=== PATIENT | female | born 1940 | race Caucasian/White ===

== ENCOUNTER 2017-11-18 17:15 | Emergency (ER) | payer MEDICARE, BC, SELFPAY ==
[2017-11-18 17:19] VITALS: BP 174/84; PULSE 98; RESP 18; TEMP 36.8; O2SAT 95; BMI 29.1
--- NOTE | 2017-11-18 17:33 | PC.NURSE ---
acute onset rt sdie cheek/upper lip swelling x90 min reports improving a little better x15 minutes, no swelling of tongue/throat/palate denies soa speaking in full sentences
[2017-11-18] MEDS: diphenhydrAMINE 50 MG/ML VIAL IV (18:12)
[2017-11-18] MEDS: methylPREDNISolone 125 MG/2 ML VIAL IV (18:12)
--- NOTE | 2017-11-18 18:38 | ED.DENTAL ---
HPI - Dental/Oral <SUDEEP Hogan - Last Filed: 11/18/17 20:56> General Chief complaint: Dental/Oral Stated complaint: RT SIDED FACIAL SWELLING Time Seen by Provider: 11/18/17 18:05 Source: patient and family Mode of arrival: ambulatory Limitations: no limitations History of Present Illness HPI Narrative: Patient presents with chief complaint of sudden onset right-sided facial swelling today. She states it started approximately 4 o'clock, but got worse about 5 o'clock. She denies any shortness of breath, cough, congestion, wheezing, oral swelling. She denies any swelling of her tongue or hives. She states that the swelling is on her right upper lip, but that is improved since she red emergency department. She also complains of some right-sided cheek swelling. She denies any fevers. She denies any recent dental work, she denies any tooth pain. Patient denies any new medications or food exposures today other than a new so also that she has never tried before prior to her lip swelling. Related Data Previous Rx's Medication Instructions Recorded prednisone 40 mg PO DAILY #10 tab 11/18/17 Allergies Allergy/AdvReac Type Severity Reaction Status Date / Time No Known Drug Allergies Allergy Verified 11/18/17 17:19 Review of Systems <SUDEEP Hogan - Last Filed: 11/18/17 20:56> Review of Systems GENERAL: Denies chills, fatigue, malaise, fever, sweats. HEENT: See HPI RESPIRATORY: Denies dyspnea, cough, wheezing, hemoptysis, sputum. CARDIOVASCULAR: Denies chest pain, palpitations, orthopnea, edema, GASTROINTESTINAL: Denies nausea, vomiting, abdominal pain, diarrhea, constipation, melena. : Denies dysuria, frequency, incontinence, hematuria, urinary retention. MUSCULOSKELETAL: denies weakness, joint pain, or bony pain SKIN: Denies rash, skin lesions, or other NEUROLOGIC: Denies weakness, headache, numbness, change in speech, confusion, seizures, incoordination. PSYCHIATRIC: No concerning psychosocial issues. 12 point review of systems is negative except for those stated above Exam <SUDEEP Hogan - Last Filed: 11/18/17 20:56> Narrative Exam Narrative: GENERAL: This is a well-nourished, well-developed patient, in mild distress. HEAD: Atraumatic. Normocephalic. No temporal or scalp tenderness. EYES: Pupils equal round and reactive. Extraocular motions intact. No scleral icterus. No injection or drainage. ENT: Nose without bleeding, purulent drainage or septal hematoma. Throat without erythema, tonsillar hypertrophy or exudate. Uvula midline. Airway patent. No pain to gum palpation. NECK: Trachea midline. No JVD or lymphadenopathy. Supple, nontender, no meningeal signs. CARDIOVASCULAR: Regular rate and rhythm without murmurs, gallops, or rubs. RESPIRATORY: Clear to auscultation. Breath sounds equal bilaterally. No wheezes, rales, or rhonchi. GASTROINTESTINAL: Abdomen soft, non-tender, nondistended. No hepato-splenomegaly, or palpable masses. No guarding. EXTREMITIES: No clubbing, cyanosis, or edema. No joint tenderness, effusion, or edema noted. BACK: Nontender without deformity or crepitance. No flank tenderness. NEURO: AOx3. No erythema, ecchymosis or hives noted. SKIN: No rash or erythema. Initial Vital Signs Initial Vital Signs: Vital Signs Temperature 98.3 F 11/18/17 17:19 Pulse Rate 98 H 11/18/17 17:19 Respiratory Rate 18 11/18/17 17:19 Blood Pressure 174/84 H 11/18/17 17:19 Pulse Oximetry 95 11/18/17 17:19 <Abby Wilson DO - Last Filed: 11/19/17 04:56> Initial Vital Signs Initial Vital Signs: Vital Signs Temperature 98.3 F 11/18/17 17:19 Pulse Rate 98 H 11/18/17 17:19 Respiratory Rate 18 11/18/17 17:19 Blood Pressure 174/84 H 11/18/17 17:19 Pulse Oximetry 95 11/18/17 17:19 Course <BELA Hogan - Last Filed: 11/18/17 20:56> Orders Ordered: Discontinued Medications Diphenhydramine HCl (Benadryl) 50 mg IV NOW ONE Stop: 11/18/17 17:42 Last Admin: 11/18/17 18:12 Dose: 50 mg Methylprednisolone (Solu-Medrol 125 Mg Vial) 125 mg IV NOW ONE Stop: 11/18/17 17:42 Last Admin: 11/18/17 18:12 Dose: 125 mg Reevaluation(s) Reevaluation #1: Patient states that she feels as though her face is less swollen than previously. She is in no respiratory distress, sitting in bed reading her book. Time: 19:05 Reevaluation #2: Patient states she feels much improved. Exam reveals decreased facial swelling. Patient and state comfort with readiness to go home. They state they will come back if any shortness of breath, wheezing, respiratory distress. Time: 20:00 Vital Signs - 8 hr 11/18/17 17:19 11/18/17 20:14 Temperature 98.3 F Pulse Rate 98 H 82 Respiratory Rate 18 16 Blood Pressure 174/84 H Blood Pressure [Right Arm] 148/84 H Pulse Oximetry 95 94 <Abby Wilson DO - Last Filed: 11/19/17 04:56> Orders Ordered: Discontinued Medications Diphenhydramine HCl (Benadryl) 50 mg IV NOW ONE Stop: 11/18/17 17:42 Last Admin: 11/18/17 18:12 Dose: 50 mg Methylprednisolone (Solu-Medrol 125 Mg Vial) 125 mg IV NOW ONE Stop: 11/18/17 17:42 Last Admin: 11/18/17 18:12 Dose: 125 mg Vital Signs - 8 hr 11/18/17 17:19 11/18/17 20:14 Temperature 98.3 F Pulse Rate 98 H 82 Respiratory Rate 18 16 Blood Pressure 174/84 H Blood Pressure [Right Arm] 148/84 H Pulse Oximetry 95 94 [facility] - Dental/Oral <BELA Hogan - Last Filed: 11/18/17 20:56> [facility] Narrative Medical decision making narrative: Patient presents with chief complaint of sudden-onset right-sided facial swelling. She has not taken Margarito inhibitor. We discussed the possibility of hereditary angioedema, though she does not know of anything in her family. We discussed the possibility of an allergic reaction, and the patient tried a new salsa today prior to the swelling occurring. She was treated in the emergency department with Solu-Medrol and Benadryl. She was noted to have a significant decrease of swelling. She has not it would never have any or pharyngeal involvement or respiratory compromise. Her vital signs were stable throughout her stay the patient remained hemodynamically stable. After 2.5 hr in the emergency department, the patient her stated they are ready to go home. I discussed at length return precautions of shortness of breath, or pharyngeal swelling, signs of an allergic reaction. They state understanding and have no questions or concerns upon discharge. The plan following up with the primary care provider tomorrow. I did place the patient on a steroid burst to help control inflammation over the next few days. Discharge Plan Departure Patient Disposition: Home Clinical Impression: Allergic reaction Discharge Date/Time: 11/18/17 20:45 Interventions: ED Discharge Assessment Last Done: 11/18/17 20:45 Instructions: Anaphylaxis, DI for General Allergic Reactions Activity Restrictions/Additional Instructions: Please monitor for shortness of breath, trouble breathing, or swelling in the mouth. Am starting you on steroids to help decrease inflammation over the next few days. Please start that tomorrow. Please continue to take Benadryl as needed for the swelling. You can take your next dose at midnight. Please come back to the emergency department if he has any acute concerns. Please follow-up with your primary care provider. Please monitor for recurrence. Prescriptions: New prednisone 20 mg tablet 40 mg PO DAILY Qty: 10 RF: 0 Referrals: Inder Tamayo MD [Primary Care Provider] - <Abby Wilson DO - Last Filed: 11/19/17 04:56> Cosign ED Attending Kevinature Attestation: I was immediately available in the department for consultation. Documentation has been reviewed. I agree with assessment and plan.
--- NOTE | 2017-11-18 18:41 | ED_ITS ---
HPI - Dental/Oral <SUDEEP Hogan - Last Filed: 11/18/17 20:56> General Chief complaint: Dental/Oral Stated complaint: RT SIDED FACIAL SWELLING Time Seen by Provider: 11/18/17 18:05 Source: patient and family Mode of arrival: ambulatory Limitations: no limitations History of Present Illness HPI Narrative: Patient presents with chief complaint of sudden onset right- sided facial swelling today. She states it started approximately 4 o'clock, but got worse about 5 o'clock. She denies any shortness of breath, cough, congestion, wheezing, oral swelling. She denies any swelling of her tongue or hives. She states that the swelling is on her right upper lip, but that is improved since she red emergency department. She also complains of some right- sided cheek swelling. She denies any fevers. She denies any recent dental work , she denies any tooth pain. Patient denies any new medications or food exposures today other than a new so also that she has never tried before prior to her lip swelling. Related Data Previous Rx's Medication Instructions Recorded prednisone 40 mg PO DAILY #10 tab 11/18/17 Allergies Allergy/AdvReac Type Severity Reaction Status Date / Time No Known Drug Allergies Allergy Verified 11/18/17 17:19 Review of Systems <SUDEEP Hogan - Last Filed: 11/18/17 20:56> Review of Systems GENERAL: Denies chills, fatigue, malaise, fever, sweats. HEENT: See HPI RESPIRATORY: Denies dyspnea, cough, wheezing, hemoptysis, sputum. CARDIOVASCULAR: Denies chest pain, palpitations, orthopnea, edema, GASTROINTESTINAL: Denies nausea, vomiting, abdominal pain, diarrhea, constipation, melena. : Denies dysuria, frequency, incontinence, hematuria, urinary retention. MUSCULOSKELETAL: denies weakness, joint pain, or bony pain SKIN: Denies rash, skin lesions, or other NEUROLOGIC: Denies weakness, headache, numbness, change in speech, confusion, seizures, incoordination. PSYCHIATRIC: No concerning psychosocial issues. 12 point review of systems is negative except for those stated above Exam <SUDEEP Hogan - Last Filed: 11/18/17 20:56> Narrative Exam Narrative: GENERAL: This is a well-nourished, well-developed patient, in mild distress. HEAD: Atraumatic. Normocephalic. No temporal or scalp tenderness. EYES: Pupils equal round and reactive. Extraocular motions intact. No scleral icterus. No injection or drainage. ENT: Nose without bleeding, purulent drainage or septal hematoma. Throat without erythema, tonsillar hypertrophy or exudate. Uvula midline. Airway patent. No pain to gum palpation. NECK: Trachea midline. No JVD or lymphadenopathy. Supple, nontender, no meningeal signs. CARDIOVASCULAR: Regular rate and rhythm without murmurs, gallops, or rubs. RESPIRATORY: Clear to auscultation. Breath sounds equal bilaterally. No wheezes , rales, or rhonchi. GASTROINTESTINAL: Abdomen soft, non-tender, nondistended. No hepato-splenomegaly , or palpable masses. No guarding. EXTREMITIES: No clubbing, cyanosis, or edema. No joint tenderness, effusion, or edema noted. BACK: Nontender without deformity or crepitance. No flank tenderness. NEURO: AOx3. No erythema, ecchymosis or hives noted. SKIN: No rash or erythema. Initial Vital Signs Initial Vital Signs: Vital Signs Temperature 98.3 F 11/18/17 17:19 Pulse Rate 98 H 11/18/17 17:19 Respiratory Rate 18 11/18/17 17:19 Blood Pressure 174/84 H 11/18/17 17:19 Pulse Oximetry 95 11/18/17 17:19 <Abby Wilson DO - Last Filed: 11/19/17 04:56> Initial Vital Signs Initial Vital Signs: Vital Signs Temperature 98.3 F 11/18/17 17:19 Pulse Rate 98 H 11/18/17 17:19 Respiratory Rate 18 11/18/17 17:19 Blood Pressure 174/84 H 11/18/17 17:19 Pulse Oximetry 95 11/18/17 17:19 Course <BELA Hogan - Last Filed: 11/18/17 20:56> Orders Ordered: Discontinued Medications Diphenhydramine HCl (Benadryl) 50 mg IV NOW ONE Stop: 11/18/17 17:42 Last Admin: 11/18/17 18:12 Dose: 50 mg Methylprednisolone (Solu-Medrol 125 Mg Vial) 125 mg IV NOW ONE Stop: 11/18/17 17:42 Last Admin: 11/18/17 18:12 Dose: 125 mg Reevaluation(s) Reevaluation #1: Patient states that she feels as though her face is less swollen than previously. She is in no respiratory distress, sitting in bed reading her book. Time: 19:05 Reevaluation #2: Patient states she feels much improved. Exam reveals decreased facial swelling. Patient and state comfort with readiness to go home. They state they will come back if any shortness of breath, wheezing, respiratory distress. Time: 20:00 Vital Signs - 8 hr 11/18/17 17:19 11/18/17 20:14 Temperature 98.3 F Pulse Rate 98 H 82 Respiratory Rate 18 16 Blood Pressure 174/84 H Blood Pressure [Right Arm] 148/84 H Pulse Oximetry 95 94 <Abby Wilson DO - Last Filed: 11/19/17 04:56> Orders Ordered: Discontinued Medications Diphenhydramine HCl (Benadryl) 50 mg IV NOW ONE Stop: 11/18/17 17:42 Last Admin: 11/18/17 18:12 Dose: 50 mg Methylprednisolone (Solu-Medrol 125 Mg Vial) 125 mg IV NOW ONE Stop: 11/18/17 17:42 Last Admin: 11/18/17 18:12 Dose: 125 mg Vital Signs - 8 hr 11/18/17 17:19 11/18/17 20:14 Temperature 98.3 F Pulse Rate 98 H 82 Respiratory Rate 18 16 Blood Pressure 174/84 H Blood Pressure [Right Arm] 148/84 H Pulse Oximetry 95 94 [facility] - Dental/Oral <BELA Hogan - Last Filed: 11/18/17 20:56> [facility] Narrative Medical decision making narrative: Patient presents with chief complaint of sudden-onset right-sided facial swelling. She has not taken Margarito inhibitor. We discussed the possibility of hereditary angioedema, though she does not know of anything in her family. We discussed the possibility of an allergic reaction, and the patient tried a new salsa today prior to the swelling occurring. She was treated in the emergency department with Solu-Medrol and Benadryl. She was noted to have a significant decrease of swelling. She has not it would never have any or pharyngeal involvement or respiratory compromise. Her vital signs were stable throughout her stay the patient remained hemodynamically stable. After 2.5 hr in the emergency department, the patient her stated they are ready to go home. I discussed at length return precautions of shortness of breath, or pharyngeal swelling, signs of an allergic reaction. They state understanding and have no questions or concerns upon discharge. The plan following up with the primary care provider tomorrow. I did place the patient on a steroid burst to help control inflammation over the next few days. Discharge Plan Departure Patient Disposition: Home Clinical Impression: Allergic reaction Discharge Date/Time: 11/18/17 20:45 Interventions: ED Discharge Assessment Last Done: 11/18/17 20:45 Instructions: Anaphylaxis, DI for General Allergic Reactions Activity Restrictions/Additional Instructions: Please monitor for shortness of breath, trouble breathing, or swelling in the mouth. Am starting you on steroids to help decrease inflammation over the next few days. Please start that tomorrow. Please continue to take Benadryl as needed for the swelling. You can take your next dose at midnight. Please come back to the emergency department if he has any acute concerns. Please follow- up with your primary care provider. Please monitor for recurrence. Prescriptions: New prednisone 20 mg tablet 40 mg PO DAILY Qty: 10 RF: 0 Referrals: Inder Tamayo MD [Primary Care Provider] - <Abby Wilson DO - Last Filed: 11/19/17 04:56> Cosign ED Attending Kevinature Attestation: I was immediately available in the department for consultation. Documentation has been reviewed. I agree with assessment and plan.
[2017-11-18 20:14] VITALS: BP 148/84; PULSE 82; RESP 16; O2SAT 94
== END 2017-11-18 20:45 | disposition home or self-care (01) ==
PROVIDERS: Emergency Provider Nurse Practitioner Family; Family Provider Internal Medicine; PCP Internal Medicine
DX: T78.40XA Allergy, unspecified, initial encounter (principal)
CPT/HCPCS: 96374; 96375; 99282; 99284; J1200; J2930

== ENCOUNTER → 2018-03-26 11:05 | Outpatient (CLI) | payer MEDICARE, BC, SELFPAY ==
--- NOTE | 2018-03-26 | DI.MG.S_ITS ---
BILATERAL DIGITAL SCREENING MAMMOGRAM 3D/2D WITH CAD: 03/26/2018 CLINICAL: Routine screening. Comparison is made to exams dated: 03/19/2017 mammogram, 02/15/2016 mammogram, and 12/28/2014 mammogram - [facility]. There are scattered fibroglandular elements in both breasts. Current study was also evaluated with a Computer Aided Detection (CAD) system. No significant masses, calcifications, or other findings are seen in either breast. There has been no significant interval change. IMPRESSION: NEGATIVE There is no mammographic evidence of malignancy. A 1 year screening mammogram is recommended. This exam was interpreted at Station ID: [id number]. NOTE: For mammograms, a report in lay terms will be sent to the patient. Approximately 15% of breast malignancies will not be visualized mammographically. In the management of a palpable breast mass, a negative mammogram must not discourage biopsy of a clinically suspicious lesion. Electronically Signed By: Kun lopez/keesha:03/26/2018 16:48:41 letter sent: Normal Exam ACR BI-RADS Category 1: Negative [id number]
== END ==
PROVIDERS: Family Provider Internal Medicine; PCP Internal Medicine; Visit Provider Internal Medicine
DX: Z12.31 Encounter for screening mammogram for malignant neoplasm of breast (principal)
CPT/HCPCS: 77063; 77067

== ENCOUNTER 2018-04-30 20:40 | Emergency (ER) | payer MEDICARE, BC, SELFPAY ==
[2018-04-30 20:35] VITALS: BMI 28.6
--- NOTE | 2018-04-30 20:56 | ED_ITS ---
HPI - Allergic Reaction General Chief complaint: Allergic Reaction Stated complaint: Anaphylactic Reaction Time Seen by Provider: 04/30/18 20:51 Source: patient Mode of arrival: EMS Limitations: no limitations History of Present Illness HPI narrative: The patient developed swelling to the left tongue about 45 min pr ior to arrival by EMS. The edema is located to the left anterior thumb only. She has no difficulty breathing or swallowing. She has no difficulty speaking. This event is having previously with similar findings. She has also had redness and swelling to the face previously. She has not had any neck swelling. She has never required intubation or had diffuse rash with the swelling. 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 Her physician as previously changed her medications, but the bowels continue. Her last amount of swelling was 4 days ago. Her physicians change in medications, she is currently not on Margarito inhibitors. She has had no fever or chills. She had dinner about 2 hr prior to onset symptoms. She had seafood. She has no prior history of shellfish allergy. She has had 9 prior episodes, and no time does she remember shellfish being involved. Related Data Home Medications Medication Instructions Recorded Confirmed C,E,zinc,copper [id number] 1 cap PO DAILY 04/30/18 04/30/18 [Ocuvite Adult 50 Plus] amlodipine 04/30/18 04/30/18 aspirin 81 mg PO DAILY 04/30/18 04/30/18 atenolol 04/30/18 04/30/18 atorvastatin 04/30/18 04/30/18 furosemide 10 mg 04/30/18 Allergies Allergy/AdvReac Type Severity Reaction Status Date / Time No Known Drug Allergies Allergy Verified 11/18/17 17:19 Review of Systems Review of Systems ROS Unobtainable: All systems reviewed & are unremarkable except as noted in HPI and below Constitutional Denies body ache(s), Denies chills, Denies fatigue, Denies fever(s) and Denies frequent falls Eyes Denies eye discharge and Denies irritation ENT Ears, Nose, Mouth, and Throat: Reports change in voice, Denies dizziness, Denies neck pain and Reports tongue swelling Cardiovascular Denies chest pain, Denies irregular heart rhythm, Denies lightheadedness, Denies palpitations, Denies dyspnea, Denies dyspnea on exertion and Denies orthopnea Respiratory Denies cough, Denies dyspnea, Denies dyspnea on exertion and Denies wheezing Musculoskeletal Denies neck pain and Denies numbness Integumentary/Breasts Denies pruritus, Denies erythema, Denies rash and Denies wounds Neurologic Denies behavioral changes, Denies confusion, Denies dizziness, Denies frequent falls and Denies numbness Psychiatric Denies behavioral changes and Denies confusion Endocrine Denies fatigue and Denies palpitations Allergic/Immunologic Reports tongue swelling and Denies wheezing PFSH Medical History Angioedema (Acute) Hypertension (Acute) Surgical History S/P appy (Acute) Social History Smoking Status: Former smoker Social History Smoking Status: Former smoker Exam Initial Vital Signs Initial Vital Signs: Vital Signs Pulse Rate 89 04/30/18 21:42 Respiratory Rate 18 04/30/18 21:42 Blood Pressure 141/84 H 04/30/18 21:42 Pulse Oximetry 95 04/30/18 21:42 Const General: cooperative and well developed Nutritional Appearance: well nourished Orientation: alert, awake, oriented x3 and not confused HENGA Mouth: lip normal, moist mucous membranes, No drooling, muffled voice and tongue abnormal (Swelling to the left anterior tongue.) Throat: posterior oropharynx normal Eyes General: appearance normal, both eyes and all related structures Eyelids: eyelids normal Conjunctivae: conjunctivae normal Sclera: sclerae normal Pupils: PERRL EOM: EOM intact bilaterally Neck Neck: normal visual inspection, trachea midline, No anterior neck swelling, No lymphadenopathy, No midline deformity, No tender, No JVD and other Chest Chest: normal inspection of the chest Resp Effort & Inspection: normal respiratory effort, able to speak in complete sentences, no respiratory distress and no use of accessory muscles Auscultation: clear to auscultation bilaterally, no rales, no rhonchi and no wheezes Cardio Rate: regular rate Rhythm: regular rhythm Heart Sounds: no click, no gallops, no murmurs and no rubs Pulses: normal peripheral pulses GI Inspection: non-distended Palpation: soft, no hepatosplenomegaly, No guarding, No pulsatile mass and No tender Auscultation: normal bowel sounds Skin General: no rashes or lesions noted and No petechiae Neuro General: alert, oriented x3, gait normal and no focal motor deficits Speech: speech normal Extrem General: No edema Course Course Narrative: The patient presents 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 She has had recent medicine changes by her PCM. She is on a calcium channel amos as well as aspirin. These meds are still possibly problematic. She did take Benadryl prior to arrival. She was given Solu-Medrol here. Prior to discharge that tongue swelling had not resolved but it improved by 60%. Her voice is normal. She has no airway compromise. She feels comfortable going home. She is advised not to take aspirin or Amlodipine and to follow up with her doctor for further advice. Orders Ordered: ED Orders 04/30/18 21:46 Basic Metabolic Panel Stat Complete Blood Count AUTO DIFF Stat Discontinued Medications Methylprednisolone (Solu-Medrol 125 Mg Vial) 125 mg IV NOW ONE Stop: 04/30/18 20:52 Last Admin: 04/30/18 21:04 Dose: 125 mg Vital Signs - 8 hr 04/30/18 21:42 04/30/18 22:41 04/30/18 23:00 Pulse Rate 89 92 H 109 H Respiratory Rate 18 21 19 Blood Pressure [Right Arm] 141/84 H 138/63 133/63 Pulse Oximetry 95 94 94 MDM - Allergic Reaction Lab Data Result diagrams: 04/30/18 21:46 04/30/18 21:46 Lab Results 04/30/18 04/30/18 Range/Units 21:46 21:46 WBC 7.8 (4.5-11.0) X10^3/uL RBC 4.14 (4.0-5.2) X10^6/uL Hgb 12.7 (12.0-16.0) g/dL Hct 38.5 (36-46) % MCV 93.0 (80-100) fL MCH 30.7 (26-34) PG MCHC 33.0 (30-36) % RDW 13.8 (11.6-14.8) % Plt Count 209 (150-400) X10^3/uL Neut % (Auto) 56.2 (50-75) % Lymph % (Auto) 27.8 (25-40) % Clinch % (Auto) 13.2 (3-14) % Eos % (Auto) 2.2 (2-4) % Baso % (Auto) 0.6 (0-2) % Neut # (Auto) 4400 (6426-0125) /uL Lymph # (Auto) 2200 (4432-7560) /uL Clinch # (Auto) 1000 H (0-900) /uL Eos # (Auto) 200 (0-450) /uL Baso # (Auto) 0 (0-100) /uL Sodium 137 (137-145) mmol/L Potassium 3.9 (3.4-5.1) mmol/L Chloride 100 (98-107) mmol/L Carbon Dioxide 23 (22-32) mmol/L BUN 12 (7-17) mg/dL Creatinine 0.60 (0.52-1.04) mg/dL Estimated GFR > 60.0 (>60) mL/min BUN/Creatinine Ratio 20.0 (6-22) Glucose 103 (80-110) mg/dL Calcium 9.5 (8.4-10.2) mg/dL Discharge Plan Departure Patient Disposition: Home Clinical Impression: Angioedema Qualifiers: Encounter type: initial encounter Qualified Code(s): T78.3XXA - Angioneurotic edema, initial encounter Instructions: Angioedema Activity Restrictions/Additional Instructions: To not take aspirin. Do not take Amlodipine. Follow-up with your doctor tomorrow for further direction about blood pressure management and medication management in general. Return to the ER if you develop worsening of the swelling in your mouth, on your tongue. Prescriptions: No Action atorvastatin 20 mg tablet RF: 0 amlodipine 10 mg tablet RF: 0 aspirin 81 mg Tablet,Chewable 81 mg PO DAILY RF: 0 furosemide 20 mg tablet 10 mg RF: 0 atenolol 50 mg tablet RF: 0 Ocuvite Adult 50 Plus 250-5-1 mg Capsule 1 cap PO DAILY RF: 0 Referrals: Inder Tamayo MD [Primary Care Provider] -
[2018-04-30] MEDS: methylPREDNISolone 125 MG/2 ML VIAL IV (21:04)
[2018-04-30 21:42] VITALS: BP 141/84; PULSE 89; RESP 18; O2SAT 95
[2018-04-30 21:50] LABS: Add Manual Diff / Slide Review NO; Basophils Absolute Auto 0 /uL (0-100); Basophils Percent Auto 0.6 % (0-2); Eosinophils Absolute Auto 200 /uL (0-450); Eosinophils Percent Auto 2.2 % (2-4); Hematocrit 38.5 % (36-46); Hemoglobin 12.7 g/dL (12.0-16.0); Lymphocytes Absolute Auto 2200 /uL (1100-4500); Lymphocytes Percent Auto 27.8 % (25-40); Mean Corpuscular Hemoglobin 30.7 PG (26-34); Monocytes Absolute Auto 1000 /uL (0-900); Monocytes Percent Auto 13.2 % (3-14); Neutrophils Absolute Auto 4400 /uL (1500-7000); Neutrophils Percent Auto 56.2 % (50-75); Platelet Count 209 X10^3/uL (150-400); Red Blood Cell Count 4.14 X10^6/uL (4.0-5.2); Red Cell Distribution Width 13.8 % (11.6-14.8); White Blood Cell Count 7.8 X10^3/uL (4.5-11.0)
[2018-04-30 21:56] LABS: Blood Urea Nitrogen 12 mg/dL (7-17); Calcium 9.5 mg/dL (8.4-10.2); Carbon Dioxide 23 mmol/L (22-32); Chloride 100 mmol/L (98-107); Estimated Glomerular Filt Rate > 60.0 mL/min (>60); Glucose 103 mg/dL (80-110); HEMOLYSIS < 15 (0-50); Potassium 3.9 mmol/L (3.4-5.1); Sodium 137 mmol/L (137-145)
[2018-04-30 22:41] VITALS: BP 138/63; PULSE 92; RESP 21; O2SAT 94
[2018-04-30 23:00] VITALS: BP 133/63; PULSE 109; RESP 19; O2SAT 94
== END 2018-04-30 23:35 | disposition home or self-care (01) ==
PROVIDERS: Emergency Provider Emergency Medicine; Family Provider Internal Medicine; PCP Internal Medicine
DX: T78.3XXA Angioneurotic edema, initial encounter (principal)
CPT/HCPCS: 36415; 80048; 85025; 99283; J2930

== ENCOUNTER → 2018-06-13 13:44 | Outpatient (CLI) | payer MEDICARE, BC, SELFPAY ==
[2018-06-15 14:39] LABS: C1 Esterase Inhibitor 32 mg/dL (21-39)
== END ==
PROVIDERS: Family Provider Internal Medicine; PCP Internal Medicine; Referring Provider Allergy & Immunology; Visit Provider Internal Medicine
DX: M85.852 Other specified disorders of bone density and structure, left thigh (principal); Z78.0 Asymptomatic menopausal state; T78.3XXA Angioneurotic edema, initial encounter; Z87.891 Personal history of nicotine dependence
CPT/HCPCS: 77080; 86160

== ENCOUNTER 2019-03-13 06:20 | Day surgery (SDC) | payer MEDICARE, BC, SELFPAY ==
[2019-03-13 07:06] VITALS: BP 167/97; PULSE 88; RESP 15; TEMP 36.4; O2SAT 96; BMI 36.8
--- NOTE | 2019-03-13 07:19 | SUR.OPER ---
Supine on eye stretcher, head on extension cradle secured with tape. Arms tucked at sides with blanket. Pillow under knees.
[2019-03-13] MEDS: CATARACT EYE COMPOUND (10 DROPS/SYRINGE) 3 DROPS EYE-OP (07:22)
--- NOTE | 2019-03-13 07:37 | PM.PREOP ---
Pre-operative Note Interval Note History & Physical reviewed/Exam performed by Physician: Yes Changes to H&P: No
[2019-03-13] MEDS: TETRACAINE 0.5% OPHTH DROPS 4 ML 2 DROPS EYE-OP (08:00)
[2019-03-13] MEDS: PHENYLEPHRINE/LIDOCAINE VIAL (OR) 0.2 ML EYE-OP (08:01)
[2019-03-13] MEDS: LIDOCAINE 2% INJ SDV 2 ML INJ (08:01)
[2019-03-13] MEDS: MOXIFLOXACIN INJ 5 MG/ML VIAL EYE-OP (08:02)
[2019-03-13] MEDS: BALANCED SALT IRRIG SOLN NO.2 500 ML, EPINEPHrine 1 MG IRR (08:03)
[2019-03-13] MEDS: CHONDROIDTIN/SOD HYALURONATE 1.05 ML SYRINGE INTRAOCULA (08:05)
[2019-03-13] MEDS: BALANCED SALT IRRIG SOLN NO.2 15 ML 5 ML IRR (08:06)
--- NOTE | 2019-03-13 08:21 | PM.OP.1 ---
Procedure & Clinicians Procedure: Cataract extraction with intraocular lens implant, right. Same procedure as scheduled: Yes Indications: Visually significant age related nuclear sclerosis, right Surgeon: Jaswinder Piper Click Yes if Unassisted: Yes Anesthesia Type: MAC +/- Operative Notes Procedure in detail: The patient was brought to the operating suite. The correct patient, surgical site and lens were confirmed. 0.5 % tetracaine drops were placed in the right eye. The patient was prepped and draped in the typical sterile manner. A lid speculum was placed in the eye. 2% lidocaine was placed on the eye. A paracentesis port was created with a side-port blade. 0.1 mL of 1% preservative free lidocaine with phenylephrine was injected into the anterior chamber. Viscoelastic was injected into the anterior chamber. A 2.6mm keratome was used to create a clear corneal temporal incision. Cystotome and Utrata forceps were used to create a continuous curvilinear capsulorrhexis. Balanced salt solution was used to hydrodissect the nucleus. Phacoemulsification was used to remove the lens. The capsular bag was inflated with viscoelastic. A Davis ZCBOO +22.0D lens was inserted into the capsule. Viscoelastic was removed and the wound hydrated. The wound was found to be leak free and the eye was assessed to be at normal physiologic pressure. 0.1mL Vigamox was injected into the anterior chamber. The lid speculum was removed and the patient left the operating room in excellent condition. Complications: none Post-operative Condition: stable Disposition: same day surgery
[2019-03-13 08:28] VITALS: BP 158/79; PULSE 75; RESP 15; TEMP 36.8; O2SAT 94
== END 2019-03-13 08:43 | disposition home or self-care (01) ==
PROVIDERS: Family Provider Internal Medicine; PCP Internal Medicine; Visit Provider Ophthalmology
PROC: (CPT 66984; principal; 2019-03-13 07:45)
DX: H25.11 Age-related nuclear cataract, right eye (principal); H35.3132 Nonexudative age-related macular degeneration, bilateral, intermediate dry stage; I10 Essential (primary) hypertension
CPT/HCPCS: 66984; J0171; J2250; J3010

== ENCOUNTER 2019-03-27 11:50 | Day surgery (SDC) | payer MEDICARE, BC, SELFPAY ==
--- NOTE | 2019-03-27 12:11 | PM.PREOP ---
Pre-operative Note Interval Note History & Physical reviewed/Exam performed by Physician: Yes Changes to H&P: No
[2019-03-27 12:22] VITALS: BP 170/82; PULSE 71; RESP 15; TEMP 36.4; O2SAT 100
[2019-03-27] MEDS: CATARACT EYE COMPOUND (10 DROPS/SYRINGE) 3 DROPS EYE-OP (12:30)
[2019-03-27] MEDS: PROPARACAINE 0.5% OPHTH SOL 2 DROPS EYE-OP (12:31)
[2019-03-27] MEDS: PHENYLEPHRINE/LIDOCAINE VIAL (OR) 0.2 ML EYE-OP (12:40)
[2019-03-27] MEDS: BALANCED SALT IRRIG SOLN NO.2 15 ML 5 ML IRR (12:41)
[2019-03-27] MEDS: CHONDROIDTIN/SOD HYALURONATE 1.05 ML SYRINGE INTRAOCULA (12:41)
[2019-03-27] MEDS: TETRACAINE 0.5% OPHTH DROPS 4 ML 2 DROPS EYE-OP (12:41)
[2019-03-27] MEDS: LIDOCAINE 2% INJ SDV 2 ML INJ (12:41)
[2019-03-27] MEDS: MOXIFLOXACIN INJ 5 MG/ML VIAL EYE-OP (12:41)
[2019-03-27] MEDS: BALANCED SALT IRRIG SOLN NO.2 500 ML, EPINEPHrine 1 MG IRR (12:42)
--- NOTE | 2019-03-27 12:59 | PM.OP.1 ---
Procedure & Clinicians Procedure: Cataract extraction with intraocular lens implant, left. Same procedure as scheduled: Yes Indications: Visually significant age related nuclear sclerosis, left Surgeon: Jaswinder Piper Click Yes if Unassisted: Yes Anesthesia Type: MAC +/- Operative Notes Procedure in detail: The patient was brought to the operating suite. The correct patient, surgical site and lens were confirmed. 0.5 % tetracaine drops were placed in the left eye. The patient was prepped and draped in the typical sterile manner. A lid speculum was placed in the eye. 2% lidocaine was placed on the eye. A paracentesis port was created with a side-port blade. 0.1 mL of 1% preservative free lidocaine with phenylephrine was injected into the anterior chamber. Viscoelastic was injected into the anterior chamber. A 2.6mm keratome was used to create a clear corneal temporal incision. Cystotome and Utrata forceps were used to create a continuous curvilinear capsulorrhexis. Balanced salt solution was used to hydrodissect the nucleus. Phacoemulsification was used to remove the lens. The capsular bag was inflated with viscoelastic. A Davis ZCBOO +22.0D lens was inserted into the capsule. Viscoelastic was removed and the wound hydrated. The wound was found to be leak free and the eye was assessed to be at normal physiologic pressure. 0.1mL Moxifloxacin (5mg/mL) preservative free was injected into the anterior chamber. The lid speculum was removed and the patient left the operating room in excellent condition. Complications: none Post-operative Condition: stable Disposition: same day surgery
[2019-03-27 13:10] VITALS: BP 148/73; PULSE 74; RESP 15; TEMP 36.3; O2SAT 95
== END 2019-03-27 13:28 | disposition home or self-care (01) ==
PROVIDERS: PCP Internal Medicine; Visit Provider Ophthalmology
PROC: (CPT 66984; principal; 2019-03-27 13:00)
DX: H25.12 Age-related nuclear cataract, left eye (principal); I10 Essential (primary) hypertension; E78.5 Hyperlipidemia, unspecified
CPT/HCPCS: 66984; J0171; J2250; J3010

== ENCOUNTER → 2019-04-01 12:11 | Outpatient (CLI) | payer MEDICARE, BC, SELFPAY ==
--- NOTE | 2019-04-01 | DI.MG.S_ITS ---
BILATERAL DIGITAL SCREENING MAMMOGRAM 3D/2D WITH CAD: 04/01/2019 CLINICAL: Routine screening. Comparison is made to exams dated: 03/26/2018 mammogram, 03/19/2017 mammogram, 02/15/2016 mammogram, 12/28/2014 mammogram, 11/27/2013 mammogram, and 10/21/2012 mammogram - [facility]. There are scattered fibroglandular elements in both breasts. Current study was also evaluated with a Computer Aided Detection (CAD) system. No significant masses, calcifications, or other findings are seen in either breast. There has been no significant interval change. IMPRESSION: NEGATIVE There is no mammographic evidence of malignancy. A 1 year screening mammogram is recommended. This exam was interpreted at Station ID: [id number]. NOTE: For mammograms, a report in lay terms will be sent to the patient. Approximately 15% of breast malignancies will not be visualized mammographically. In the management of a palpable breast mass, a negative mammogram must not discourage biopsy of a clinically suspicious lesion. Electronically Signed By: Lenny daniels/keesha:04/01/2019 16:29:22 letter sent: Normal Exam ACR BI-RADS Category 1: Negative 3341F
== END ==
PROVIDERS: PCP Internal Medicine; Referring Provider Internal Medicine; Visit Provider Internal Medicine
DX: Z12.31 Encounter for screening mammogram for malignant neoplasm of breast (principal)
CPT/HCPCS: 77063; 77067

== ENCOUNTER → 2019-10-09 10:34 | Outpatient (CLI) | payer MEDICARE, BC, SELFPAY ==
[2019-10-09 12:39] LABS: Aspartate Aminotransferase 44 IU/L (14-36); BUN Creatinine Ratio 15.5 (6-22); Blood Urea Nitrogen 9 mg/dL (7-17); Calcium 9.7 mg/dL (8.4-10.2); Carbon Dioxide 28 mmol/L (22-32); Chloride 95 mmol/L (98-107); Cholesterol 176 mg/dL (140-199); Estimated Glomerular Filt Rate > 60.0 mL/min (>60); Glucose 94 mg/dL (80-110); HDL Cholesterol 105 mg/dL (40-60); HEMOLYSIS < 15 (0-50); LDL Cholesterol Calculated 40 mg/dL (<100); Potassium 5.6 mmol/L (3.4-5.1); Sodium 130 mmol/L (137-145); Triglycerides 157 mg/dL (35-150)
== END ==
PROVIDERS: PCP Internal Medicine; Referring Provider Internal Medicine; Visit Provider Internal Medicine
DX: I10 Essential (primary) hypertension (principal); E78.2 Mixed hyperlipidemia
CPT/HCPCS: 36415; 80048; 80061; 84450

== ENCOUNTER → 2019-10-20 13:45 | Outpatient (CLI) | payer MEDICARE, BC, SELFPAY ==
[2019-10-20 15:25] LABS: Alanine Aminotransferase 35 IU/L (<35); Albumin 4.4 g/dL (3.5-5.0); Albumin Globulin Ratio 1.3 (1.0-2.8); Alkaline Phosphatase 68 U/L (38-126); Aspartate Aminotransferase 38 IU/L (14-36); BUN Creatinine Ratio 21.8 (6-22); Bilirubin Total 0.5 mg/dL (0.2-1.3); Bilirubin Unconjugated 0.4 mg/dL (0.0-1.1); Blood Urea Nitrogen 12 mg/dL (7-17); Calcium 9.5 mg/dL (8.4-10.2); Carbon Dioxide 27 mmol/L (22-32); Chloride 97 mmol/L (98-107); Estimated Glomerular Filt Rate > 60.0 mL/min (>60); Globulin 3.3 g/dL (1.7-4.1); Glucose 106 mg/dL (80-110); HEMOLYSIS < 15 (0-50); Potassium 4.7 mmol/L (3.4-5.1); Sodium 131 mmol/L (137-145); Total Protein 7.7 g/dL (6.3-8.2)
[2019-10-20 16:34] LABS: Hepatitis B Surface Antigen NEGATIVE s/c (NEGATIVE)
[2019-10-20 17:08] LABS: Hep C Virus Ab w/Reflex Quant NEGATIVE s/c (NEGATIVE)
[2019-10-21 03:37] LABS: Hepatitis B Surf Ab Qualitativ Non Reactive (.)
== END ==
PROVIDERS: PCP Internal Medicine; Referring Provider Internal Medicine; Visit Provider Internal Medicine
DX: I10 Essential (primary) hypertension (principal); E78.2 Mixed hyperlipidemia
CPT/HCPCS: 36415; 80048; 80076; 83735; 86706; 86803; 87340

== ENCOUNTER → 2020-05-27 15:55 | Outpatient (CLI) | payer MEDICARE, BC, SELFPAY ==
--- NOTE | 2020-05-27 15:56 | DI.MG.S_ITS ---
BILATERAL DIGITAL SCREENING MAMMOGRAM 3D/2D WITH CAD: 05/27/2020 CLINICAL: Routine screening. Comparison is made to exams dated: 04/01/2019 mammogram, 03/26/2018 mammogram, and 03/19/2017 mammogram - [facility]. There are scattered fibroglandular elements in both breasts. Current study was also evaluated with a Computer Aided Detection (CAD) system. No significant masses, calcifications, or other findings are seen in either breast. There has been no significant interval change. IMPRESSION: NEGATIVE There is no mammographic evidence of malignancy. A 1 year screening mammogram is recommended. This exam was interpreted at Station ID: [id number]. NOTE: For mammograms, a report in lay terms will be sent to the patient. Approximately 15% of breast malignancies will not be visualized mammographically. In the management of a palpable breast mass, a negative mammogram must not discourage biopsy of a clinically suspicious lesion. Electronically Signed By: Harry Miller M.D., jr/keesha:05/27/2020 16:19:05 letter sent: Normal Exam ACR BI-RADS Category 1: Negative 3341F
== END ==
PROVIDERS: PCP Internal Medicine; Referring Provider Internal Medicine; Visit Provider Internal Medicine
DX: Z12.31 Encounter for screening mammogram for malignant neoplasm of breast (principal)
CPT/HCPCS: 77063; 77067

== ENCOUNTER → 2020-06-30 19:16 | Outpatient (ROUT) | payer MEDICARE, BC, SELFPAY ==
[2020-06-30 19:30] LABS: Alanine Aminotransferase 42 IU/L (<35); Albumin 4.4 g/dL (3.5-5.0); Albumin Globulin Ratio 1.4 (1.0-2.8); Alkaline Phosphatase 90 U/L (38-126); Aspartate Aminotransferase 45 IU/L (14-36); BUN Creatinine Ratio 23.5 (6-22); Bilirubin Total 0.4 mg/dL (0.2-1.3); Bilirubin Unconjugated 0.2 mg/dL (0.0-1.1); Blood Urea Nitrogen 12 mg/dL (7-17); Carbon Dioxide 27 mmol/L (22-32); Chloride 98 mmol/L (98-107); Cholesterol 179 mg/dL (140-199); Estimated Glomerular Filt Rate > 60.0 mL/min (>60); Globulin 3.2 g/dL (1.7-4.1); Glucose 96 mg/dL (80-110); HDL Cholesterol 99 mg/dL (40-60); HEMOLYSIS < 15 (0-50); LDL Cholesterol Calculated 54 mg/dL (<100); Potassium 4.1 mmol/L (3.4-5.1); Sodium 134 mmol/L (137-145); Total Protein 7.6 g/dL (6.3-8.2); Triglycerides 128 mg/dL (35-150)
[2020-06-30 19:31] LABS: Hemoglobin A1C% w Est Avg Glu 5.4 % (4.0-6.0)
[2020-06-30 20:01] LABS: TSH w/ Reflex to FT4 0.95 uIU/mL (0.47-4.68)
[2020-06-30 20:18] LABS: Vitamin B12 576 pg/mL (239-931)
[2020-07-05 16:08] LABS: Alpha 1 Globulin 0.3 g/dL (0.0-0.4); Alpha 2 Globulin 0.8 g/dL (0.4-1.0); Beta 1 Globulin 0.9 g/dL (0.7-1.3); Gamma Globulin 1.3 g/dL (0.4-1.8); Protein, Total 7.2 g/dL (6.0-8.5)
== END ==
PROVIDERS: PCP Internal Medicine; Visit Provider Internal Medicine
DX: R79.89 Other specified abnormal findings of blood chemistry (principal); E03.9 Hypothyroidism, unspecified; I10 Essential (primary) hypertension; E53.8 Deficiency of other specified B group vitamins
CPT/HCPCS: 80048; 80061; 80076; 82607; 83036; 84155; 84165; 84443

== ENCOUNTER 2021-03-06 10:18 | Emergency (ER) | payer MEDICARE, BC, SELFPAY ==
[2021-03-06] VITALS (15 sets, daily range): BP systolic 136–199; BP diastolic 61–106; PULSE 60–101; RESP 18–25; O2SAT 92–99; BMI 29.2
[2021-03-06] MEDS: methylPREDNISolone 125 MG/2 ML VIAL IV (10:30)
[2021-03-06] MEDS: FAMOTIDINE 20 MG/2 ML VIAL IV (10:30)
[2021-03-06] MEDS: diphenhydrAMINE 50 MG/ML VIAL 25 MG IV (10:30)
--- NOTE | 2021-03-06 10:33 | ED.ALLEREA ---
HPI - Allergic Reaction General Chief complaint: Allergic Reaction Stated complaint: TONGUE SWOLLEN Time Seen by Provider: 03/06/21 10:26 Source: patient, family and old records reviewed Mode of arrival: Ambulatory Limitations: no limitations History of Present Illness HPI narrative: This is a 81-year-old female comes emergency department concern for angioedema. Patient states she has had multiple episodes in the past. She states it has been about 2 years since it last happened. She states she saw an build and release manager they never found a direct cause they did stop her aspirin and amlodipine. She is not on a DARSHAN-inhibitor. She is unaware of anyone has mentioned hereditary angioedema. She states she took 4 mg of prednisone as well as p.o. Benadryl at home at about 930 and has not had any improvement. She states it started out very small sort of blue up quickly and that has seemed like it has stabilized. It is mostly her tongue but both sides typically she states it is one-sided. She has a little bit of sensation in the right neck but does not feel it is progressing at this time. She states it is affecting her speech. She does not feel short of breath. She does not feel wheezy. She has not had any nausea or vomiting. She denies any other GI or urinary symptoms. She has never been intubated for this before. She denies any other known drug allergies. She has not had any new medication changes. Related Data Home Medications Medication Instructions Recorded Confirmed atorvastatin 20 mg tablet 20 mg PO DAILY 04/30/18 03/27/19 furosemide 20 mg tablet 10 mg PO DAILY PRN 04/30/18 03/27/19 vit C,E,zinc,copper-[id number] 250 1 cap PO DAILY 04/30/18 03/27/19 mg-lutein 5 mg-zeaxanthin 1 mg capsule (Ocuvite Adult 50 Plus) carvedilol 12.5 mg tablet 12.5 mg PO BID 03/13/19 03/27/19 Previous Rx's Medication Instructions Recorded famotidine 20 mg tablet (Pepcid) 20 mg PO BID #10 tab 03/06/21 Allergies Allergy/AdvReac Type Severity Reaction Status Date / Time No Known Drug Allergies Allergy Verified 03/27/19 12:08 Review of Systems Review of Systems ROS Unobtainable: All systems reviewed & are unremarkable except as noted in HPI and below Patient History Medical History Angioedema Hypertension Surgical History S/P appy Social History household members: spouse Smoking Status: Former smoker alcohol intake: current Smoking Status: Former smoker alcohol intake frequency: 0-2 drinks per day Substance Use Type: does not use Exam Narrative Exam Narrative: GEN: well nourished, well appearing female, alert and oriented x 3, patient appears to be in mild distress. HEENT: Atraumatic, pupils are equal round reactive to light, extraocular movements are intact, nares are clear. Throat is clearly visualized patient's tongue is quite swollen particularly the right side in comparison to the left. Patient has good movement. Her tongue is not protruding. There does not appear to be any involvement of the lips or face. Patient's speech is slightly muffled. I do not appreciate any swelling in the neck. There is no stridor or wheeze. HEART: Regular rate and rhythm without murmur, clicks, rubs. LUNGS:Lungs clear to auscultation, no wheezes, rales, crackles, chest moves symmetrically ABD:bowel sounds normal, soft, non-tender, no guarding, rebound, rigidity, no masses noted, no hepatosplenomegaly MSCL: Non-tender, full range of motion, normal gait NEURO:CN 2-12 intact, sensation normal SKIN: No rash, erythema or other skin changes. Initial Vital Signs Initial Vital Signs: Vital Signs Pulse Rate 60 03/06/21 10:18 Respiratory Rate 18 03/06/21 10:18 Blood Pressure 199/106 H 03/06/21 10:18 Pulse Oximetry 95 03/06/21 10:18 Course Orders Ordered: ED Orders 03/06/21 10:30 CBC Auto Diff [Complete Blood Count AUTO DIFF] Stat CMP [Comprehensive Metabolic Panel] Stat 03/06/21 11:55 COVID19 - ADMIT (CONTENT CREATION MANAGER swab/PCR) Stat COVID19 -Nasal swab/Pre-Proc Stat Discontinued Medications Diphenhydramine HCl (Diphenhydramine 50 Mg/Ml Vial) 25 mg IV NOW ONE Stop: 03/06/21 10:33 Last Admin: 03/06/21 10:30 Dose: 25 mg Documented by: THOM Epinephrine HCl (Epinephrine 1 Mg/Ml) 0.5 mg IM NOW ONE Stop: 03/06/21 10:33 Last Admin: 03/06/21 10:47 Dose: 0.5 mg Documented by: THOM Famotidine (Famotidine 20 Mg/2 Ml Vial) 20 mg IV NOW ONE Stop: 03/06/21 10:33 Last Admin: 03/06/21 10:30 Dose: 20 mg Documented by: THOM Sodium Chloride (Normal Saline 0.9%) 1,000 mls @ 150 mls/hr IV CONT ELOY Last Admin: 03/06/21 10:48 Dose: 150 mls/hr Documented by: THOM Methylprednisolone (Methylprednisolone 125 Mg/2 Ml Vial) 125 mg IV NOW ONE Stop: 03/06/21 10:33 Last Admin: 03/06/21 10:30 Dose: 125 mg Documented by: THOM Reevaluation(s) Reevaluation #1: Patient received Solu-Medrol, Benadryl and Pepcid as well as epi IM. She on re-evaluation she is feeling any worse. No major improvement. Time: 11:01 Reevaluation #2: Patient has not had any worsening. She continues to have swelling with minimal improvement. Time: 12:46 Reevaluation #3: Patient states she notes minimal improvement but when I visually evaluate I can actually see around her entire tongue now which was not possible earlier. Patient speech is mildly improved. Continue to monitor at this time. Time: 15:16 Additional Reevaluation(s): 1549: On re-evaluation patient for continues to improve. She has not had complete resolution but has had significant improvement. She now has normal speech. I am able to visualize the area around her tongue significantly. Top of her tongue is improved quite a bit and the lower portion has still some swelling but she states this feels to be improving as well. We discussed if she would like to continue to be observed she feels comfortable and safe to return home. She states she has not had recurrence shortly after in the past. We discussed return precautions and that she should have very low threshold to return. She lives quite close by. Plan to continue prednisone which she has at home from a prescription prescribed by her physician and build and release manager. Pepcid and Benadryl as needed although we discussed that there are different types of angioedema such as hereditary and do not ache that may be at play. Vital Signs Vital signs: Vital Signs - 8 hr 03/06/21 11:30 03/06/21 11:45 03/06/21 12:00 Pulse Rate 84 88 93 H Respiratory Rate 21 21 20 Blood Pressure 136/63 175/75 H 173/83 H Pulse Oximetry 94 92 98 03/06/21 12:15 03/06/21 12:30 03/06/21 12:31 Pulse Rate 94 H 96 H 97 H Respiratory Rate 19 21 22 Blood Pressure 165/80 H 176/74 H Pulse Oximetry 95 95 95 03/06/21 12:45 03/06/21 13:00 03/06/21 16:15 Pulse Rate 97 H 96 H 101 H Respiratory Rate 20 20 20 Blood Pressure 147/61 H 152/67 H 139/66 Pulse Oximetry 96 95 94 MDM - Allergic Reaction Lab Data Result diagrams: 03/06/21 10:30 03/06/21 10:30 Labs: Lab Results 03/06/21 03/06/21 03/06/21 Range/Units 10:30 10:30 11:55 WBC 7.8 (4.5-11.0) X10^3/uL RBC 4.38 (4.0-5.2) X10^6/uL Hgb 13.3 (12.0-16.0) g/dL Hct 39.6 (36-46) % MCV 90.4 (80-100) fL MCH 30.3 (26-34) PG MCHC 33.5 (30-36) % RDW 13.3 (11.6-14.8) % Plt Count 238 (150-400) X10^3/uL Neut % (Auto) 61.1 (50-75) % Lymph % (Auto) 28.1 (25-40) % [place] % (Auto) 8.4 (3-14) % Eos % (Auto) 1.8 L (2-4) % Baso % (Auto) 0.6 (0-2) % Neut # (Auto) 4800 (1790-7946) /uL Lymph # (Auto) 2200 (1733-4169) /uL [place] # (Auto) 700 (0-900) /uL Eos # (Auto) 100 (0-450) /uL Baso # (Auto) 0 (0-100) /uL Sodium 135 L (137-145) mmol/L Potassium 4.4 (3.4-5.1) mmol/L Chloride 99 (98-107) mmol/L Carbon Dioxide 30 (22-32) mmol/L BUN 10 (7-17) mg/dL Creatinine 0.63 (0.52-1.04) mg/dL Estimated GFR > 60.0 (>60) mL/min BUN/Creatinine Ratio 15.9 (6-22) Glucose 89 (80-110) mg/dL Calcium 9.8 (8.4-10.2) mg/dL Total Bilirubin 0.5 (0.2-1.3) mg/dL AST 29 (14-36) IU/L ALT 32 (<35) IU/L Alkaline Phosphatase 69 (38-126) U/L Total Protein 8.1 (6.3-8.2) g/dL Albumin 4.5 (3.5-5.0) g/dL Globulin 3.6 (1.7-4.1) g/dL Albumin/Globulin Ratio 1.3 (1.0-2.8) SARS-CoV-2 (PCR) Negative (Negative) 03/06/21 Range/Units 11:55 WBC (4.5-11.0) X10^3/uL RBC (4.0-5.2) X10^6/uL Hgb (12.0-16.0) g/dL Hct (36-46) % MCV (80-100) fL MCH (26-34) PG MCHC (30-36) % RDW (11.6-14.8) % Plt Count (150-400) X10^3/uL Neut % (Auto) (50-75) % Lymph % (Auto) (25-40) % [place] % (Auto) (3-14) % Eos % (Auto) (2-4) % Baso % (Auto) (0-2) % Neut # (Auto) (2123-8157) /uL Lymph # (Auto) (7956-1472) /uL [place] # (Auto) (0-900) /uL Eos # (Auto) (0-450) /uL Baso # (Auto) (0-100) /uL Sodium (137-145) mmol/L Potassium (3.4-5.1) mmol/L Chloride (98-107) mmol/L Carbon Dioxide (22-32) mmol/L BUN (7-17) mg/dL Creatinine (0.52-1.04) mg/dL Estimated GFR (>60) mL/min BUN/Creatinine Ratio (6-22) Glucose (80-110) mg/dL Calcium (8.4-10.2) mg/dL Total Bilirubin (0.2-1.3) mg/dL AST (14-36) IU/L ALT (<35) IU/L Alkaline Phosphatase (38-126) U/L Total Protein (6.3-8.2) g/dL Albumin (3.5-5.0) g/dL Globulin (1.7-4.1) g/dL Albumin/Globulin Ratio (1.0-2.8) SARS-CoV-2 (PCR) Negative (Negative) MDM Narrative Medical decision making narrative: This is a 81-year-old female with 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 She had significant swelling of her tongue today would but hour and half before she came in. She tried some oral prednisone and Benadryl with minimal to no improvement. She received epi, Solu-Medrol, Benadryl and Pepcid. She had slow improvement over time with no worsening at any point. After several hours of observation she has had significant improvement although not complete resolution. She is at least 50-60% better than she was before. She feels comfortable returning home, her speech has normalized she has not had any worsening symptoms. Strict return precautions were discussed all questions answered and patient is aware to have a very low threshold to return. Discharge Plan Departure Patient Disposition: Home Clinical Impression: Angioedema Instructions: DI for Angioedema Activity Restrictions/Additional Instructions: Follow up with your physician for recheck. Continue prednisone prescription until completed. I would add Pepcid 20 mg twice daily. This is available [id number] but a prescription was also sent to [facility] in [place] You can take Benadryl 1-2 tablets every 6 hours as needed for symptoms. Please return for recurrent symptoms, new swelling of your lips, tongue, mouth, airway, stridor, muffled voice, wheezing or chest pain, hives, persistent vomiting or diarrhea or other new or concerning symptoms. Prescriptions: New famotidine [Pepcid] 20 mg tablet 20 mg PO BID Qty: 10 0RF No Action atorvastatin 20 mg tablet 20 mg PO DAILY 0RF Label Comments: take 1 tablet by mouth once daily furosemide 20 mg tablet 10 mg PO DAILY PRN (Reason: diuretic) 0RF Ocuvite Adult 50 Plus 250-5-1 mg Capsule 1 cap PO DAILY 0RF carvedilol 12.5 mg Tablet 12.5 mg PO BID 0RF Referrals: Inder Tamayo MD [Primary Care Provider] -
[2021-03-06] MEDS: EPINEPHrine 1 MG/ML 0.5 MG IM (10:47)
[2021-03-06] MEDS: SODIUM CHLORIDE 0.9% 1,000 ML 150 ML IV (10:48)
--- NOTE | 2021-03-06 11:18 | PC.NURSE ---
Patient arrives with swollen tongue and difficulty speaking. Pt and state there have been two prior incidences where tongue has swelled and they went to the ED but this is by far is the most severe swelling of the tongue. Pt given epi, methylprednisone, famotidine, benedryl, see MAR for mg and administration. Pt placed in trauma room, intubation kit and glidescope set-up by doctor and RT consulted in the tx room. Pt appears comfortable, denies WOB, no retractions, AOx4, at the bedside.
--- NOTE | 2021-03-06 11:48 | PC.NURSE ---
Pt O2 sat drops to 90-91 when sleeping. Placed pt on 2L oxygen, O2 sat now = 97%. aware.
[2021-03-06 12:24] LABS: COVID19 -Nasal RAPID Negative (Negative)
[2021-03-06 12:36] LABS: Alanine Aminotransferase 32 IU/L (<35); Albumin 4.5 g/dL (3.5-5.0); Albumin Globulin Ratio 1.3 (1.0-2.8); Alkaline Phosphatase 69 U/L (38-126); Aspartate Aminotransferase 29 IU/L (14-36); BUN Creatinine Ratio 15.9 (6-22); Bilirubin Total 0.5 mg/dL (0.2-1.3); Blood Urea Nitrogen 10 mg/dL (7-17); Calcium 9.8 mg/dL (8.4-10.2); Carbon Dioxide 30 mmol/L (22-32); Chloride 99 mmol/L (98-107); Estimated Glomerular Filt Rate > 60.0 mL/min (>60); Globulin 3.6 g/dL (1.7-4.1); Glucose 89 mg/dL (80-110); HEMOLYSIS < 15 (0-50); Potassium 4.4 mmol/L (3.4-5.1); Sodium 135 mmol/L (137-145); Total Protein 8.1 g/dL (6.3-8.2)
[2021-03-06 12:38] LABS: Add Manual Diff / Slide Review NO; Basophils Absolute Auto 0 /uL (0-100); Basophils Percent Auto 0.6 % (0-2); Eosinophils Absolute Auto 100 /uL (0-450); Eosinophils Percent Auto 1.8 % (2-4); Hematocrit 39.6 % (36-46); Hemoglobin 13.3 g/dL (12.0-16.0); Lymphocytes Absolute Auto 2200 /uL (1100-4500); Lymphocytes Percent Auto 28.1 % (25-40); Mean Corpuscular HGB Conc 33.5 % (30-36); Mean Corpuscular Hemoglobin 30.3 PG (26-34); Mean Corpuscular Volume 90.4 fL (80-100); Monocytes Absolute Auto 700 /uL (0-900); Monocytes Percent Auto 8.4 % (3-14); Neutrophils Absolute Auto 4800 /uL (1500-7000); Neutrophils Percent Auto 61.1 % (50-75); Platelet Count 238 X10^3/uL (150-400); Red Blood Cell Count 4.38 X10^6/uL (4.0-5.2); Red Cell Distribution Width 13.3 % (11.6-14.8); White Blood Cell Count 7.8 X10^3/uL (4.5-11.0)
[2021-03-06 13:56] LABS: COVID19 - ADMIT (NP swab/PCR) Negative (Negative)
== END 2021-03-06 16:16 | disposition home or self-care (01) ==
PROVIDERS: Emergency Provider Emergency Medicine; PCP Internal Medicine
DX: T78.3XXA Angioneurotic edema, initial encounter (principal); Z20.822 Contact with and (suspected) exposure to COVID-19
CPT/HCPCS: 36415; 80053; 85025; 87635; 96372; 96374; 96375; 99284; C9803; J0171; J1200; J2930

== ENCOUNTER 2022-07-04 13:43 | Emergency (ER) | payer MEDICARE, BC, SELFPAY ==
[2022-07-04] VITALS (23 sets, daily range): BP systolic 117–197; BP diastolic 68–100; PULSE 70–94; RESP 11–26; TEMP 36.9; O2SAT 90–99; BMI 29.5
[2022-07-04] MEDS: EPINEPHrine 1 MG/ML 0.5 MG IM (13:55)
--- NOTE | 2022-07-04 14:01 | ED.ALLEREA ---
HPI - Allergic Reaction General Chief complaint: Allergic Reaction Stated complaint: angio edema tounge swollen Time Seen by Provider: 07/04/22 13:56 History of Present Illness HPI narrative: Patient is a 82-year-old female presenting today with sudden onset tongue swelling. She reports that she was at home and developed suddenly she is having difficulty speaking. She is not on lisinopril. She was recently started atorvastatin injections every 4 weeks her last 1 was 2-3 weeks ago she is due next week. She denies having anything new. It appears that she did have some angioedema in 2019 which resolved with Solu-Medrol. She does have an epinephrine pen she did not use it because it October 2021. She took 25 mg of Benadryl prior to arrival. Related Data Home Medications Medication Instructions Recorded Confirmed carvedilol 12.5 mg tablet 12.5 mg PO BID 03/13/19 08/22/21 epinephrine 0.3 mg/0.3 mL 0.3 mg IM ONCE PRN 07/14/21 08/22/21 injection, auto-injector vit C 250 mg-vit E 90 mg-zinc 40 1 tab PO BID 07/14/21 08/22/21 mg-copper 1 [id number] capsule (PreserVision AREDS-2) Previous Rx's Medication Instructions Recorded atorvastatin 20 mg tablet 20 mg PO DAILY #90 tabs 03/27/22 epinephrine 0.3 mg/0.3 mL 0.3 mg (0.3 mL) IM Q5-15M PRN 07/04/22 injection, auto-injector anaphylaxis #2 ea prednisone 20 mg tablet 40 mg PO DAILY #10 tabs 07/04/22 Allergies Allergy/AdvReac Type Severity Reaction Status Date / Time No Known Drug Allergies Allergy Verified 08/22/21 09:46 Review of Systems Review of Systems ROS Unobtainable: All systems reviewed & are unremarkable except as noted in HPI and below Patient History Medical History Advanced directives, counseling/discussion Angioedema Angioedema Essential hypertension Hypertension Medicare annual wellness visit, initial Mixed hyperlipidemia Polyneuropathy, unspecified Surgical History S/P appy Social History household members: spouse Smoking Status: Former smoker alcohol intake: current Smoking Status: Former smoker alcohol intake frequency: 0-2 drinks per day Substance Use Type: does not use Exam Initial Vital Signs Initial Vital Signs: Vital Signs Temperature 98.4 F 07/04/22 13:50 Pulse Rate 77 07/04/22 13:50 Respiratory Rate 24 07/04/22 13:50 Blood Pressure 180/81 H 07/04/22 13:50 Pulse Oximetry 98 07/04/22 13:50 Oxygen Delivery Method Room Air 07/04/22 13:50 GENERAL: Alert 82-year-old female HEENT: Head atraumatic,EOMI, pupils reactive, obvious tongue swelling difficulty speaking CARDIOVASCULAR: Regular rate and rhythm without murmurs, rubs or gallops. RESPIRATORY: Breath sounds equal bilaterally, no wheezes rales or rhonchi. EXTREMITIES: Normal range of motion, no clubbing or edema. Neurovascularly intact NEUROLOGICAL: Alert and oriented x4. SKIN: Warm, dry, no laceration, no petechiae, no rashes or lesions. Course Orders Ordered: Discontinued Medications Diphenhydramine HCl (Diphenhydramine 50 Mg/Ml Vial) 25 mg IV NOW ONE Stop: 07/04/22 14:00 Last Admin: 07/04/22 14:02 Dose: 25 mg Documented By: DERRICK Epinephrine HCl (Epinephrine 1 Mg/Ml) 0.5 mg IM NOW ONE Stop: 07/04/22 13:59 Last Admin: 07/04/22 13:55 Dose: 0.5 mg Documented By: DERRICK Epinephrine HCl (Epinephrine 1 Mg/Ml) 0.3 mg IM NOW ONE Stop: 07/04/22 14:50 Last Admin: 07/04/22 14:54 Dose: 0.3 mg Documented By: MARGARITO Famotidine (Famotidine 20 Mg/2 Ml Vial) 20 mg IV NOW ELOY Last Admin: 07/04/22 14:03 Dose: 20 mg Documented By: DERRICK Tranexamic Acid 1,000 mg/ (Sodium Chloride) 100 mls @ 200 mls/hr IV NOW ONE Stop: 07/04/22 15:22 Last Infusion: 07/04/22 16:00 Dose: 0 mls/hr Documented By: Admin: 07/04/22 15:05 Dose: 200 mls/hr Documented By: MARGARITO Methylprednisolone (Methylprednisolone 125 Mg/2 Ml Vial) 125 mg IV NOW ONE Stop: 07/04/22 13:59 Last Admin: 07/04/22 14:03 Dose: 125 mg Documented By: AMU Vital Signs Vital signs: Vital Signs - 8 hr 07/04/22 13:50 07/04/22 13:58 07/04/22 13:59 Temperature 98.4 F Pulse Rate 77 86 72 Respiratory Rate 24 Blood Pressure 180/81 H Pulse Oximetry 98 96 99 Oxygen Delivery Method Room Air 07/04/22 13:59 07/04/22 14:00 07/04/22 14:00 Temperature Pulse Rate 79 Respiratory Rate 11 L Blood Pressure 117/68 173/100 H Pulse Oximetry 99 Oxygen Delivery Method 07/04/22 14:16 07/04/22 14:16 07/04/22 14:30 Temperature Pulse Rate 79 Respiratory Rate 26 H Blood Pressure 151/78 H 188/81 H Pulse Oximetry 97 Oxygen Delivery Method 07/04/22 14:30 07/04/22 14:48 07/04/22 14:48 Temperature Pulse Rate 71 75 Respiratory Rate 18 22 Blood Pressure 194/92 H Pulse Oximetry 96 96 Oxygen Delivery Method 07/04/22 15:00 07/04/22 15:01 07/04/22 15:01 Temperature Pulse Rate 70 73 Respiratory Rate 18 22 Blood Pressure 180/81 H Pulse Oximetry 96 97 Oxygen Delivery Method 07/04/22 15:15 07/04/22 15:15 07/04/22 15:30 Temperature Pulse Rate 73 Respiratory Rate 18 Blood Pressure 170/81 H 179/86 H Pulse Oximetry 94 Oxygen Delivery Method 07/04/22 15:30 07/04/22 15:45 07/04/22 15:45 Temperature Pulse Rate 71 73 Respiratory Rate 17 17 Blood Pressure 185/86 H Pulse Oximetry 93 94 Oxygen Delivery Method 07/04/22 16:00 07/04/22 16:00 07/04/22 16:15 Temperature Pulse Rate 74 75 Respiratory Rate 22 18 Blood Pressure 187/83 H Pulse Oximetry 93 92 Oxygen Delivery Method 07/04/22 16:15 07/04/22 16:30 07/04/22 16:30 Temperature Pulse Rate 75 Respiratory Rate 17 Blood Pressure 183/86 H 176/80 H Pulse Oximetry 93 Oxygen Delivery Method 07/04/22 16:45 07/04/22 16:45 07/04/22 17:00 Temperature Pulse Rate 72 Respiratory Rate 17 Blood Pressure 170/80 H 166/78 H Pulse Oximetry 90 L Oxygen Delivery Method 07/04/22 17:00 07/04/22 17:15 07/04/22 17:15 Temperature Pulse Rate 77 79 Respiratory Rate 16 17 Blood Pressure 162/79 H Pulse Oximetry 91 92 Oxygen Delivery Method 07/04/22 17:30 07/04/22 17:30 07/04/22 17:49 Temperature Pulse Rate 77 Respiratory Rate 17 Blood Pressure 151/75 H 197/95 H Pulse Oximetry 91 Oxygen Delivery Method 07/04/22 17:49 07/04/22 18:00 07/04/22 18:01 Temperature Pulse Rate 94 H 87 Respiratory Rate 16 19 Blood Pressure 181/83 H Pulse Oximetry 97 93 Oxygen Delivery Method 07/04/22 18:01 07/04/22 18:15 07/04/22 18:15 Temperature Pulse Rate 91 H 87 Respiratory Rate 21 18 Blood Pressure 157/72 H Pulse Oximetry 94 93 Oxygen Delivery Method MDM - Allergic Reaction MDM Narrative Medical decision making narrative: Patient evaluated about 1 hour after 1st epinephrine she has had no improvement but has not gotten any worse. She also had Benadryl Solu-Medrol and Pepcid. She still has significant left-sided tongue swelling. She is given a 2nd dose of epinephrine and 1 g of TXA. Re-evaluated 1 hour after that she has amount of improvement both she her and myself do appreciate but tongue is still quite a bit swollen. She reports the last time this took a long time multiple hours before it finally went down. It is unknown what she is allergic to. I question if this is a true anaphylaxis without response to epinephrine. She is not on an DARSHAN inhibitor. 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 She has no further worsening of the edema continuing to monitor. After 3-1/2 hours in the emergency department patient is finally improving there is obvious decreased swelling visible by myself and by patient's voice. Patient has previously been to an [facility] it is unclear what she is allergic to. She says last month she had a small swelling and allergy in her cheek for which she took Benadryl for and it easily went away. At this time I feel comfortable letting patient go home. She is extremely reliable I discussed using EpiPen if this happens again and then coming to the emergency department. Discharge Plan Departure Patient Disposition: Home Clinical Impression: Angioedema Instructions: Angioedema Activity Restrictions/Additional Instructions: *You have been diagnosed with angioedema *What to do: At this time it is unclear what you are allergic to. Your epinephrine is refilled and we will put you on some prednisone for a few days I hope that this gets better for you *Continue to take medications as directed Prednisone 40 mg once a day for 5 days Epinephrine as needed *Follow up with your primary care provider in 2-3 days or call [phone] *Return to ER if you should have increasing tongue swelling difficulty breathing difficulty swallowing or any new, worsening or concerning symptoms Prescriptions: New prednisone 20 mg tablet 40 mg PO DAILY Qty: 10 0RF epinephrine 0.3 mg/0.3 mL auto-injector 0.3 mg IM Q5-15M PRN (Reason: anaphylaxis) Qty: 2 0RF Rx Instructions: do not exceed 3 doses per episode No Action atorvastatin 20 mg tablet 20 mg PO DAILY Qty: 90 3RF Patient Comments: take 1 tablet by mouth once daily epinephrine 0.3 mg/0.3 mL auto-injector 0.3 mg IM ONCE PRN PreserVision AREDS-2 250-90-40-1 mg capsule 1 tab PO BID carvedilol 12.5 mg Tablet 12.5 mg PO BID Referrals: Inder Tamayo MD [Primary Care Provider] - Stand Alone Forms: Patient Portal/API
[2022-07-04] MEDS: diphenhydrAMINE 50 MG/ML VIAL 25 MG IV (14:02)
[2022-07-04] MEDS: FAMOTIDINE 20 MG/2 ML VIAL IV (14:03)
[2022-07-04] MEDS: methylPREDNISolone 125 MG/2 ML VIAL IV (14:03)
[2022-07-04] MEDS: EPINEPHrine 1 MG/ML 0.3 MG IM (14:54)
[2022-07-04] MEDS: TRANEXAMIC ACID 1,000 MG in SODIUM CHLORIDE 0.9% 100 ML 200 MG IV (15:05)
--- NOTE | 2022-07-04 18:12 | PC.NURSE ---
tongue swelling appears slightly better, pt is speaking and talking more clearly. pt states she is feeling better at this point in time
== END 2022-07-04 18:42 | disposition home or self-care (01) ==
PROVIDERS: Emergency Provider Emergency Medicine; PCP Internal Medicine
DX: T78.3XXA Angioneurotic edema, initial encounter (principal)
CPT/HCPCS: 36415; 96365; 96372; 96375; 99284; J0171; J1200; J2930

== ENCOUNTER → 2022-07-20 16:09 | Outpatient (CLI) | payer MEDICARE, BC, SELFPAY ==
[2022-07-20 16:27] LABS: Hematocrit 37.6 % (36-46); Hemoglobin 12.5 g/dL (12.0-16.0); Mean Corpuscular HGB Conc 33.4 % (30-36); Mean Corpuscular Hemoglobin 30.6 PG (26-34); Mean Corpuscular Volume 91.8 fL (80-100); Platelet Count 203 X10^3/uL (150-400); Red Blood Cell Count 4.09 X10^6/uL (4.0-5.2); Red Cell Distribution Width 13.7 % (11.6-14.8); White Blood Cell Count 6.3 X10^3/uL (4.5-11.0)
[2022-07-20 16:56] LABS: Alanine Aminotransferase 29 IU/L (<35); Albumin 4.2 g/dL (3.5-5.0); Albumin Globulin Ratio 1.5 (1.0-2.8); Alkaline Phosphatase 71 U/L (38-126); Aspartate Aminotransferase 26 IU/L (14-36); BUN Creatinine Ratio 16.3 (6-22); Bilirubin Total 0.4 mg/dL (0.2-1.3); Blood Urea Nitrogen 8 mg/dL (7-17); Calcium 9.1 mg/dL (8.4-10.2); Carbon Dioxide 26 mmol/L (22-32); Chloride 95 mmol/L (98-107); Cholesterol 189 mg/dL (140-199); Estimated Glomerular Filt Rate > 60 mL/min (>60); Globulin 2.8 g/dL (1.7-4.1); Glucose 99 mg/dL (80-110); HDL Cholesterol 96 mg/dL (40-60); HEMOLYSIS 18 (0-50); LDL Cholesterol Calculated 67 mg/dL (<100); Potassium 4.2 mmol/L (3.4-5.1); Sodium 129 mmol/L (137-145); Triglycerides 129 mg/dL (35-150)
[2022-07-20 17:26] LABS: TSH w/ Reflex to FT4 0.88 uIU/mL (0.47-4.68)
== END ==
PROVIDERS: PCP Internal Medicine; Referring Provider Internal Medicine; Visit Provider Internal Medicine
DX: E78.2 Mixed hyperlipidemia (principal); I10 Essential (primary) hypertension; T78.3XXA Angioneurotic edema, initial encounter
CPT/HCPCS: 36415; 80053; 80061; 84443; 85027

== ENCOUNTER → 2022-08-03 12:40 | Outpatient (CLI) | payer MEDICARE, BC, SELFPAY ==
--- NOTE | 2022-08-03 12:54 | DI.DEXA.S_ITS ---
Bone Density Report Name: NICHO KUHN Age: 82 Sex: Female Ethnicity: White Date of : 1940 Indication: osteopenia; Referring Provider: YAA HAWKINS Study: Bone densitometry was performed. Exam Date: August 03, 2022 Accession number: [id number] Bone Density: Region BMD T-score Z-score Classification AP Spine(L1-L4) 0.968 -0.7 2.0 Normal Femoral Neck (Left) 0.585 -2.4 -0.1 Osteopenia Total Hip (Left) 0.775 -1.4 0.7 Osteopenia Femoral Neck (Right) 0.549 -2.7 -0.4 Osteoporosis Total Hip (Right) 0.710 -1.9 0.2 Osteopenia Total Hip Mean 0.743 -1.7 0.5 Osteopenia World Health Organization criteria for BMD impression classify patients as: Normal (T-score at or above -1.0), Osteopenia (T-score between -1.0 and -2.5), or Osteoporosis (T-score at or below -2.5). 10-year Fracture Risk: FRAX not reported because: Some T-score for Spine Total or Hip Total or Femoral Neck at or below -2.5 Previous Exams: -- Region Exam Age BMD T-score BMD Change BMD Change Date g/cm2 vs Baseline vs Previous -- AP Spine (L1-L4) 08/03/2022 82 0.968 -0.7 0.011 (1.2%)# 0.011 (1.2%)# 06/13/2018 78 0.957 -0.8 Total Hip(Left) 08/03/2022 82 0.775 -1.4 -0.001 (-0.2%)# -0.001 (-0.2%)# 06/13/2018 78 0.776 -1.4 Total Hip(Right) 08/03/2022 82 0.710 -1.9 -0.019 (-2.7%)# -0.019 (-2.7%)# 06/13/2018 78 0.730 -1.7 -- *Denotes significance at 95% confidence level, LSC for AP Spine = 0.022 g/cm2, LSC for Total Hip = 0.027 g/cm2 # Denotes dissimilar scan types or analysis methods Impression: The patient has osteoporosis, based on the Right Femoral Neck T-score. No significant bone loss was observed. Discussion: INCREASED RISK OF FRACTURE. BONE DENSITY IS UNDESIRABLY LOW AT ONE OR MORE SKELETAL SITES, CONSISTENT WITH POSTMENOPAUSAL OSTEOPOROSIS. This patient's lowest T-score meets the World Health Organization's (WHO) criteria for osteoporosis at one or more sites (T-score -2.5 or below). In untreated patients, the risk of osteoporotic fracture increases approximately two-fold for each 1.0 SD decrease in T-score. Low bone density is not the only risk factor for fracture; also consider factors such as patient's age, frailty or poor health, risk of falling, risk of injury, previous osteoporotic fracture, family history of osteoporosis, cigarette smoking, low body weight, etc. Not everyone with low bone mineral density has osteoporosis; osteomalacia and other metabolic bone disorders should also be considered. Patients who have osteoporosis should be evaluated for specific diseases and conditions (secondary causes) that may cause or contribute to bone loss. The [place] [employer] (AACE) and National Osteoporosis Foundation (NOF) recommend pharmacologic intervention for all postmenopausal women whose T-score is in this range. The patient should follow a healthful lifestyle (good nutrition with adequate calcium and vitamin D, and appropriate weight-bearing exercise). Follow-Up: Consider a repeat BMD and Vertebral Fracture Assessment (VFA) exam in 2 years or sooner if medically necessary, to reassess this patient's status. Reported by: ILDA HER M.D. on 08/03/2022 1:04:00 PM.
== END ==
PROVIDERS: PCP Internal Medicine; Referring Provider Internal Medicine; Visit Provider Internal Medicine
DX: Z78.0 Asymptomatic menopausal state (principal); M81.0 Age-related osteoporosis without current pathological fracture
CPT/HCPCS: 77080

== ENCOUNTER 2023-08-05 15:03 | Emergency (ER) | payer MEDICARE, BC, SELFPAY ==
[2023-08-05 15:06] VITALS: BP 155/86; PULSE 84; RESP 18; TEMP 36.8; O2SAT 96; BMI 29.2
--- NOTE | 2023-08-05 15:15 | ED.ALLEREA ---
HPI - Allergic Reaction General Chief complaint: Allergic Reaction Stated complaint: allergic reaction/tongue swelling Time Seen by Provider: 08/05/23 15:12 Source: patient Mode of arrival: Ambulatory History of Present Illness HPI narrative: Patient 83-year-old female history of hyperlipidemia hypertension presenting today with a allergic reaction. She reports that she has had angioedema previously. She is unsure what she is allergic to. She has her tongue swelling is afternoon gave herself an EpiPen around 2:40 p.m. but still has tongue swelling. She does not report that she feels any better. She does not have any sort of rash or hives. She has not on an DARSHAN inhibitor. She is 2 previous episodes of this both times took significantly long time for her to recover. She got TXA last time that time before that she not but usually takes almost 4 hours Related Data Home Medications Medication Instructions Recorded Confirmed epinephrine 0.3 mg/0.3 mL 0.3 mg IM ONCE PRN 07/14/21 09/15/22 injection, auto-injector vit C 250 mg-vit E 90 mg-zinc 40 1 tab PO BID 07/14/21 09/15/22 mg-copper 1 [id number] capsule (PreserVision AREDS-2) bevacizumab 25 mg/mL intravenous 25 mg IV Q6W Age related Macular 07/20/22 09/15/22 solution (Avastin) Degenerati Previous Rx's Medication Instructions Recorded prednisone 20 mg tablet 40 mg (2 x 20 mg) PO DAILY #10 tabs 07/04/22 carvedilol 25 mg tablet 25 mg PO BID #180 tabs 07/20/22 atorvastatin 20 mg tablet 20 mg PO DAILY #90 tabs 03/05/23 epinephrine 0.3 mg/0.3 mL 0.3 mg (0.3 mL) IM Q5-15M PRN 08/05/23 injection, auto-injector anaphylaxis #2 ea prednisone 20 mg tablet 40 mg (2 x 20 mg) PO DAILY #10 tabs 08/05/23 Allergies Allergy/AdvReac Type Severity Reaction Status Date / Time No Known Drug Allergies Allergy Verified 08/05/23 15:09 Patient History Medical History Age-related osteoporosis without current pathological fracture Angioedema Angioedema Essential hypertension Hypertension Mixed hyperlipidemia Polyneuropathy, unspecified Surgical History S/P appy Social History household members: spouse Smoking Status: Former smoker alcohol intake: current Smoking Status: Former smoker alcohol intake frequency: 0-2 drinks per day Substance Use Type: does not use Exam Initial Vital Signs Initial Vital Signs: Vital Signs Temperature 98.2 F 08/05/23 15:06 Pulse Rate 84 08/05/23 15:06 Respiratory Rate 18 08/05/23 15:06 Blood Pressure 155/86 H 08/05/23 15:06 Pulse Oximetry 96 08/05/23 15:06 Oxygen Delivery Method Room Air 08/05/23 15:06 GENERAL: Alert 83-year-old female and in no acute distress. HEENT: Head atraumatic,EOMI, pupils reactive, face symmetric, obvious tongue swelling more on right than left no uvula swelling no significant lip swelling able to manage secretions CARDIOVASCULAR: Regular rate and rhythm without murmurs, rubs or gallops. RESPIRATORY: Breath sounds equal bilaterally, no wheezes rales or rhonchi. ABDOMEN: Soft, nontender. Normoactive bowel sounds all 4 quadrants. No guarding or rebound. EXTREMITIES: Normal range of motion, no clubbing or edema. Neurovascularly intact NEUROLOGICAL: Alert and oriented x4.Normal gait and speech. SKIN: Warm, dry, no laceration, no petechiae, no rashes or lesions. Course Orders Ordered: Famotidine (Famotidine 20 Mg/2 Ml Vial) 20 mg IV NOW ELOY Last Admin: 08/05/23 15:28 Dose: 20 mg Documented By: JESU Discontinued Medications Diphenhydramine HCl (Diphenhydramine 50 Mg/Ml Vial) 25 mg IV NOW ONE Stop: 08/05/23 15:16 Last Admin: 08/05/23 15:28 Dose: 25 mg Documented By: JESU Epinephrine HCl (Epinephrine 1 Mg/Ml) 0.5 mg IM NOW ONE Stop: 08/05/23 15:16 Last Admin: 08/05/23 15:27 Dose: 0.5 mg Documented By: JESU Methylprednisolone (Methylprednisolone 125 Mg/2 Ml Vial) 125 mg IV NOW ONE Stop: 08/05/23 15:16 Last Admin: 08/05/23 15:28 Dose: 125 mg Documented By: JESU Vital Signs Vital signs: Vital Signs - 8 hr 08/05/23 15:06 08/05/23 16:06 08/05/23 17:07 Temperature 98.2 F Pulse Rate 84 77 80 Respiratory Rate 18 13 18 Blood Pressure 155/86 H 176/76 H 195/87 H Pulse Oximetry 96 94 96 Oxygen Delivery Method Room Air Room Air Room Air MDM - Allergic Reaction MDM Narrative Medical decision making narrative: 1544 patient reexamined she continues to have tongue swelling but reports it has not getting any worse not getting any better no other signs of urticaria rash. Previously multiple hours of monitoring Patient is monitored in the ED for over 3-1/2 hours she has obvious improvement in her tongue she is speaking much more clearly tolerating fluids. He is always takes awhile for her to go down. She is unsure exactly what she is allergic to she obviously has some sort of angioedema reaction. At this time she feels ready and able to go home Discharge Plan Departure Patient Disposition: Home Clinical Impression: Angioedema Instructions: DI for Anaphylaxis Activity Restrictions/Additional Instructions: *You have been diagnosed with angioedema *What to do: At this time please follow-up with your primary care may need to repeat allergy testing *Continue to take medications as directed EpiPen as needed Prednisone 40 mg once a day for 5 days *Follow up with your primary care provider in 2-3 days or call [phone] *Return to ER if you should have increased tongue swelling lip swelling difficulty or any new, worsening or concerning symptoms Prescriptions: New prednisone 20 mg tablet 40 mg PO DAILY Qty: 10 0RF epinephrine 0.3 mg/0.3 mL auto-injector 0.3 mg IM Q5-15M PRN (Reason: anaphylaxis) Qty: 2 0RF Rx Instructions: do not exceed 3 doses per episode No Action atorvastatin 20 mg tablet 20 mg PO DAILY Qty: 90 3RF Patient Comments: take 1 tablet by mouth once daily epinephrine 0.3 mg/0.3 mL auto-injector 0.3 mg IM ONCE PRN PreserVision AREDS-2 250-90-40-1 mg capsule 1 tab PO BID Avastin 25 mg/mL solution 25 mg IV Q6W carvedilol 25 mg tablet 25 mg PO BID Qty: 180 3RF Rx Instructions: must administer with a meal/food prednisone 20 mg tablet 40 mg PO DAILY Qty: 10 0RF Referrals: Inder Tamayo MD [Primary Care Provider] - Stand Alone Forms: Patient Portal/API
[2023-08-05] MEDS: EPINEPHrine 1 MG/ML 0.5 MG IM (15:27)
[2023-08-05] MEDS: FAMOTIDINE 20 MG/2 ML VIAL IV (15:28)
[2023-08-05] MEDS: diphenhydrAMINE 50 MG/ML VIAL 25 MG IV (15:28)
[2023-08-05] MEDS: methylPREDNISolone 125 MG/2 ML VIAL IV (15:28)
[2023-08-05 16:06] VITALS: BP 176/76; PULSE 77; RESP 13; O2SAT 94
[2023-08-05 17:07] VITALS: BP 195/87; PULSE 80; RESP 18; O2SAT 96
[2023-08-05 18:57] VITALS: BP 209/98; PULSE 93; RESP 14; O2SAT 96
== END 2023-08-05 19:00 | disposition home or self-care (01) ==
PROVIDERS: Emergency Provider Emergency Medicine; PCP Internal Medicine
DX: T78.3XXA Angioneurotic edema, initial encounter (principal); X58.XXXA Exposure to other specified factors, initial encounter
CPT/HCPCS: 36415; 96372; 96374; 96375; 99283; 99284; J0171; J1200; J2919

== ENCOUNTER → 2023-08-21 12:46 | Outpatient (CLI) | payer MEDICARE, BC, SELFPAY ==
[2023-08-21 13:59] LABS: Aspartate Aminotransferase 26 IU/L (14-36); BUN Creatinine Ratio 17.5 (6-22); Blood Urea Nitrogen 10 mg/dL (7-17); Calcium 8.7 mg/dL (8.4-10.2); Carbon Dioxide 26 mmol/L (22-32); Chloride 99 mmol/L (98-107); Cholesterol 179 mg/dL (140-199); Estimated Glomerular Filt Rate > 60 mL/min (>60); Glucose 90 mg/dL (80-110); HDL Cholesterol 94 mg/dL (40-60); LDL Cholesterol Calculated 57 mg/dL (<100); Potassium 4.6 mmol/L (3.4-5.1); Sodium 134 mmol/L (137-145); Triglycerides 140 mg/dL (35-150)
[2023-08-21 14:10] LABS: HEMOLYSIS 64 (0-50)
== END ==
PROVIDERS: PCP Internal Medicine; Referring Provider Internal Medicine; Visit Provider Internal Medicine
DX: E78.2 Mixed hyperlipidemia (principal); I10 Essential (primary) hypertension
CPT/HCPCS: 36415; 80048; 80061; 84450

== ENCOUNTER 2024-02-17 17:41 | Emergency (ER) | payer MEDICARE, BC, SELFPAY ==
[2024-02-17] VITALS (20 sets, daily range): BP systolic 187–256; BP diastolic 75–118; PULSE 71–101; RESP 16–28; TEMP 36.2–36.8; O2SAT 92–99
[2024-02-17] MEDS: DEXAMETHASONE 10 MG/ML VIAL IM (18:04)
[2024-02-17] MEDS: EPINEPHrine 1 MG/ML 0.3 MG IM (18:05)
[2024-02-17] MEDS: methylPREDNISolone 125 MG/2 ML VIAL IV (18:10)
[2024-02-17] MEDS: diphenhydrAMINE 50 MG/ML VIAL IV (18:11)
--- NOTE | 2024-02-17 18:15 | ED.ALLEREA ---
HPI - Allergic Reaction General Chief complaint: Allergic Reaction Stated complaint: Allergic Reaction, Swollen Tongue Time Seen by Provider: 02/17/24 17:57 Source: patient Mode of arrival: Ambulatory History of Present Illness HPI narrative: Patient 83-year-old female history of anaphylaxis/angioedema. She has been in the ED handful of times with similar presentations. Unclear what she is allergic to. She has not on an DARSHAN inhibitor. She reports this started about 1 hour ago. She took epi at home along with 50 mg of Benadryl. She is able to swallow manage her own secretions. But feels like her tongue is swollen more in the right than the left. She has previously gotten TXA but monitored in the ED and ultimately sent home. She has no urticaria or rash. She is able to speak clearly. Related Data Home Medications Medication Instructions Recorded Confirmed epinephrine 0.3 mg/0.3 mL 0.3 mg IM ONCE PRN 07/14/21 08/06/23 injection, auto-injector vit C 250 mg-vit E 90 mg-zinc 40 1 tab PO BID 07/14/21 08/06/23 mg-copper 1 [id number] capsule (PreserVision AREDS-2) Previous Rx's Medication Instructions Recorded prednisone 20 mg tablet 40 mg (2 x 20 mg) PO DAILY #10 tabs 07/04/22 epinephrine 0.3 mg/0.3 mL 0.3 mg (0.3 mL) IM Q5-15M PRN 08/05/23 injection, auto-injector anaphylaxis #2 ea prednisone 20 mg tablet 40 mg (2 x 20 mg) PO DAILY #10 tabs 08/05/23 atorvastatin 20 mg tablet 20 mg PO DAILY #90 tabs 08/06/23 carvedilol 25 mg tablet 25 mg PO BID #180 tabs 08/06/23 epinephrine 0.3 mg/0.3 mL 0.3 mg (0.3 mL) IM Q5-15M PRN 02/17/24 injection, auto-injector anaphylaxis #2 ea prednisone 20 mg tablet 40 mg (2 x 20 mg) PO DAILY #10 tabs 02/17/24 Allergies Allergy/AdvReac Type Severity Reaction Status Date / Time No Known Drug Allergies Allergy Verified 08/06/23 16:05 Patient History Medical History Age-related osteoporosis without current pathological fracture Polyneuropathy, unspecified Angioedema Mixed hyperlipidemia Essential hypertension Angioedema Hypertension Surgical History S/P appy Social History household members: spouse Smoking Status: Former smoker alcohol intake: current Smoking Status: Former smoker alcohol intake frequency: 0-2 drinks per day Exam Initial Vital Signs Initial Vital Signs: Vital Signs Temperature 97.2 F L 02/17/24 17:57 Pulse Rate 101 H 02/17/24 17:57 Respiratory Rate 16 02/17/24 17:57 Blood Pressure 256/118 H 02/17/24 17:57 Pulse Oximetry 93 02/17/24 17:57 Oxygen Delivery Method Room Air 02/17/24 17:57 GENERAL: Alert pleasant 83-year-old and in no acute distress. HEENT: Head atraumatic,EOMI, pupils reactive, Swelling of lips and tongue slightly muffled voice but managing secretions CARDIOVASCULAR: Regular rate and rhythm without murmurs, rubs or gallops. RESPIRATORY: Breath sounds equal bilaterally, no wheezes rales or rhonchi. No stridor no respiratory distress ABDOMEN: Soft, nontender. Normoactive bowel sounds all 4 quadrants. No guarding or rebound. EXTREMITIES: Normal range of motion, no clubbing or edema. Neurovascularly intact NEUROLOGICAL: Alert and oriented x4.Normal gait and speech. SKIN: Warm, dry, no laceration, no petechiae, no rashes or lesions. No urticaria Course Orders Ordered: Discontinued Medications Carvedilol (Carvedilol 12.5 Mg Tablet) 25 mg PO NOW ONE Stop: 02/17/24 20:41 Last Admin: 02/17/24 20:54 Dose: 25 mg Documented By: UTRNER Dexamethasone (Dexamethasone 10 Mg/Ml Vial) 10 mg IM NOW ONE Stop: 02/17/24 17:59 Last Admin: 02/17/24 18:04 Dose: 10 mg Documented By: KAREY Diphenhydramine HCl (Diphenhydramine 50 Mg/Ml Vial) 50 mg IV NOW ONE Stop: 02/17/24 17:59 Last Admin: 02/17/24 18:11 Dose: 50 mg Documented By: KAREY Epinephrine HCl (Epinephrine 1 Mg/Ml) 0.3 mg IM NOW ONE Stop: 02/17/24 18:00 Last Admin: 02/17/24 18:05 Dose: 0.3 mg Documented By: KAREY Famotidine (Famotidine 20 Mg/2 Ml Vial) 20 mg IV NOW ELOY Last Admin: 02/17/24 18:22 Dose: 20 mg Documented By: KAREY Tranexamic Acid 1,000 mg/ (Sodium Chloride) 100 mls @ 200 mls/hr IV NOW ONE Stop: 02/17/24 19:30 Last Infusion: 02/17/24 20:06 Dose: Infused Documented By: Admin: 02/17/24 19:22 Dose: 200 mls/hr Documented By: TURNER Methylprednisolone (Methylprednisolone 125 Mg/2 Ml Vial) 125 mg IV NOW ONE Stop: 02/17/24 17:59 Last Admin: 02/17/24 18:10 Dose: 125 mg Documented By: KAREY Vital Signs Vital signs: Vital Signs - 8 hr 02/17/24 20:15 02/17/24 20:15 02/17/24 20:30 Temperature Pulse Rate 76 Respiratory Rate 21 Blood Pressure 212/89 H 213/91 H Pulse Oximetry 93 02/17/24 20:30 02/17/24 20:45 02/17/24 20:45 Temperature Pulse Rate 74 76 Respiratory Rate 20 20 Blood Pressure 194/86 H Pulse Oximetry 92 92 02/17/24 20:54 02/17/24 21:00 02/17/24 21:00 Temperature Pulse Rate 77 75 Respiratory Rate 21 Blood Pressure 194/86 H 207/75 H Pulse Oximetry 93 02/17/24 21:15 02/17/24 21:27 Temperature 98.2 F Pulse Rate Respiratory Rate 16 Blood Pressure 187/84 H Pulse Oximetry MDM - Allergic Reaction MDM Narrative Medical decision making narrative: Patient 83-year-old female who has a history of angioedema presenting today with angioedema. She has obvious tongue swelling she had epi at. Another dose of epi dexamethasone Pepcid. No tremor managing her secretions but still quite swollen. She is previously responded to 1 g of TXA. Discussed with her giving this medication again and she was agreeable to it. 1900-Overall appears stable minimal improvement no significant worsening. Discussed with her TXA he has had it for. She was like to do it again Patient re-evaluated she reports that it is gone down she still has some swelling but can definitely talk a lot easier. She would like to go home she has been in the ED for multiple hours. She reports it as never Re swollen. I feel comfortable letting her go. She was given prescription for new epi and prednisone. She never really had anaphylaxis but she does angioedema does seem to be improving well. This is very similar to previous presentation she has had. Discharge Plan Departure Patient Disposition: Home Clinical Impression: Angioedema Instructions: Angioedema Activity Restrictions/Additional Instructions: *You have been diagnosed with angioedema *What to do: Sorry this keeps happening to you. I hope that they figure it out. *Continue to take medications as directed Prednisone 40 mg once a day for 5 days Epinephrine as needed *Follow up with your primary care provider in 2-3 days or call [phone] *Return to ER if you should have increased tongue swelling lip swelling difficulty breathing [or] any new, worsening or concerning symptoms Prescriptions: New prednisone 20 mg tablet 40 mg PO DAILY Qty: 10 0RF epinephrine 0.3 mg/0.3 mL auto-injector 0.3 mg IM Q5-15M PRN (Reason: anaphylaxis) Qty: 2 0RF Rx Instructions: do not exceed 3 doses per episode No Action epinephrine 0.3 mg/0.3 mL auto-injector 0.3 mg IM ONCE PRN PreserVision AREDS-2 250-90-40-1 mg capsule 1 tab PO BID atorvastatin 20 mg tablet 20 mg PO DAILY Qty: 90 3RF Patient Comments: take 1 tablet by mouth once daily carvedilol 25 mg tablet 25 mg PO BID Qty: 180 3RF Rx Instructions: must administer with a meal/food prednisone 20 mg tablet 40 mg PO DAILY Qty: 10 0RF prednisone 20 mg tablet 40 mg PO DAILY Qty: 10 0RF epinephrine 0.3 mg/0.3 mL auto-injector 0.3 mg IM Q5-15M PRN (Reason: anaphylaxis) Qty: 2 0RF Rx Instructions: do not exceed 3 doses per episode Referrals: Inder Tamayo MD [Primary Care Provider] - Stand Alone Forms: Patient Portal/API/Survey
[2024-02-17] MEDS: FAMOTIDINE 20 MG/2 ML VIAL IV (18:22)
[2024-02-17] MEDS: TRANEXAMIC ACID 1,000 MG in SODIUM CHLORIDE 0.9% 100 ML 200 MG IV (19:22)
--- NOTE | 2024-02-17 19:29 | PC.NURSE ---
TXA order reviewed w/ MD Wilson
[2024-02-17] MEDS: carvediloL 12.5 MG TABLET 25 MG PO (20:54)
--- NOTE | 2024-02-17 21:28 | PC.NURSE ---
mild tongue swelling; no evidence of airway compromise. Respirations regular and unlabored w/o stridor or wheezing noted.
== END 2024-02-17 21:29 | disposition home or self-care (01) ==
PROVIDERS: Emergency Provider Emergency Medicine; PCP Internal Medicine
DX: T78.3XXA Angioneurotic edema, initial encounter (principal); X58.XXXA Exposure to other specified factors, initial encounter
CPT/HCPCS: 96365; 96372; 96375; 99284; J0171; J1100; J1200; J2919

== ENCOUNTER 2024-07-08 12:12 | Emergency (ER) | payer MEDICARE, BC, SELFPAY ==
[2024-07-08] VITALS (22 sets, daily range): BP systolic 168–210; BP diastolic 76–141; PULSE 65–93; RESP 16–28; TEMP 36.6; O2SAT 91–97
--- NOTE | 2024-07-08 12:26 | ED.ALLEREA ---
HPI - Allergic Reaction General Chief complaint: Allergic Reaction Stated complaint: Having an allergic reaction Time Seen by Provider: 07/08/24 12:20 Source: patient Mode of arrival: Ambulatory History of Present Illness HPI narrative: Patient has had multiple visits to the emergency department for angioedema. She is not on any DARSHAN inhibitors. She has not seen an outside machinist in many years. She does carry an EpiPen. She denies any new products today. She did have teeth cleaning today by the dentist. This is not new for her. Denies any trouble breathing. She did take Benadryl prior to arrival as well as epinephrine injection. Patient in no distress. Has right-sided tongue swelling. Airway intact. No drooling. Please see her last visit here February 17, 2024 for the same complaint. Please see medications below that were given, she agrees to try these medications again. MDM - Allergic Reaction MDM Narrative Medical decision making narrative: Patient 83-year-old female who has a history of angioedema presenting today with angioedema. She has obvious tongue swelling she had epi at. Another dose of epi dexamethasone Pepcid. No tremor managing her secretions but still quite swollen. She is previously responded to 1 g of TXA. Discussed with her giving this medication again and she was agreeable to it. 1900-Overall appears stable minimal improvement no significant worsening. Discussed with her TXA he has had it for. She was like to do it again Patient re-evaluated she reports that it is gone down she still has some swelling but can definitely talk a lot easier. She would like to go home she has been in the ED for multiple hours. She reports it as never Re swollen. I feel comfortable letting her go. She was given prescription for new epi and prednisone. She never really had anaphylaxis but she does angioedema does seem to be improving well. This is very similar to previous presentation she has had. Related Data Home Medications Medication Instructions Recorded Confirmed epinephrine 0.3 mg/0.3 mL 0.3 mg IM ONCE PRN 07/14/21 08/06/23 injection, auto-injector vit C 250 mg-vit E 90 mg-zinc 40 1 tab PO BID 07/14/21 08/06/23 mg-copper 1 [id number] capsule (PreserVision AREDS-2) Previous Rx's Medication Instructions Recorded prednisone 20 mg tablet 40 mg (2 x 20 mg) PO DAILY #10 tabs 07/04/22 epinephrine 0.3 mg/0.3 mL 0.3 mg (0.3 mL) IM Q5-15M PRN 08/05/23 injection, auto-injector anaphylaxis #2 ea prednisone 20 mg tablet 40 mg (2 x 20 mg) PO DAILY #10 tabs 08/05/23 atorvastatin 20 mg tablet 20 mg PO DAILY #90 tabs 08/06/23 carvedilol 25 mg tablet 25 mg PO BID #180 tabs 08/06/23 epinephrine 0.3 mg/0.3 mL 0.3 mg (0.3 mL) IM Q5-15M PRN 02/17/24 injection, auto-injector anaphylaxis #2 ea prednisone 20 mg tablet 40 mg (2 x 20 mg) PO DAILY #10 tabs 02/17/24 epinephrine 0.3 mg/0.3 mL 0.3 mg (0.3 mL) IM Q5-15M PRN 07/08/24 injection, auto-injector (EpiPen anaphylaxis #2 ea 2-Eliezer) methylprednisolone 4 mg tablets in See Rx Instructions PO .COMPLEX 07/08/24 a dose pack (Medrol (Eliezer)) #21 ea Allergies Allergy/AdvReac Type Severity Reaction Status Date / Time No Known Drug Allergies Allergy Verified 07/08/24 12:21 Review of Systems Review of Systems Narrative: GENERAL: Negative chills, fatigue, malaise, fever, sweats. HEENT: Negative sinus pain, ear pain, sore throat, positive tongue swelling RESPIRATORY: Negative dyspnea, cough CARDIOVASCULAR: Negative chest pain, palpitations GASTROINTESTINAL: Negative vomiting, nausea, abdominal pain : Negative dysuria, frequency, hematuria MUSCULOSKELETAL: Negative muscle or bony pain SKIN: Negative rash, skin lesions NEUROLOGIC: Negative weakness, numbness ROS Unobtainable: All systems reviewed & are unremarkable except as noted in HPI and below Patient History Medical History Age-related osteoporosis without current pathological fracture Polyneuropathy, unspecified Angioedema Mixed hyperlipidemia Essential hypertension Angioedema Hypertension Surgical History S/P appy Social History household members: spouse Smoking Status: Unknown if ever smoked alcohol intake: current Smoking Status: Unknown if ever smoked alcohol intake frequency: 0-2 drinks per day Exam Narrative Exam Narrative: GENERAL: in no distress, not toxic not dyspneic HEAD: Normocephalic. EYES: Pupils equal round ENT: Mucous membranes moist. Right half of tongue is edematous. No drooling no malocclusion no trismus. NECK: Trachea midline. No stridor CARDIOVASCULAR: Regular rate and rhythm RESPIRATORY: Clear to auscultation. Breath sounds equal bilaterally. No wheezes, rales, or rhonchi. GASTROINTESTINAL: Abdomen soft, non-tender EXTREMITIES: No gross deformities. BACK: No flank tenderness. NEURO: AOx4. Clear speech SKIN: Warm and dry PSYCH: Not anxious, is cooperative Initial Vital Signs Initial Vital Signs: Vital Signs Temperature 97.8 F 07/08/24 12:13 Pulse Rate 93 H 07/08/24 12:13 Respiratory Rate 21 07/08/24 12:13 Blood Pressure 205/112 H 07/08/24 12:13 Pulse Oximetry 96 07/08/24 12:13 Oxygen Delivery Method Room Air 07/08/24 12:13 Course Orders Ordered: Discontinued Medications Epinephrine HCl (Epinephrine 1 Mg/Ml) 0.3 mg IM NOW ONE Stop: 07/08/24 13:02 Last Admin: 07/08/24 13:04 Dose: 0.3 mg Documented By: MOHAMUD Famotidine (Famotidine 20 Mg/2 Ml Vial) 20 mg IV NOW ELOY Last Admin: 07/08/24 13:10 Dose: 20 mg Documented By: MOHAMUD Tranexamic Acid 1,000 mg/ (Sodium Chloride) 100 mls @ 200 mls/hr IV NOW ONE Stop: 07/08/24 12:51 Last Infusion: 07/08/24 13:23 Dose: Infused Documented By: Admin: 07/08/24 12:45 Dose: 200 mls/hr Documented By: MOHAMUD Methylprednisolone (Methylprednisolone 125 Mg/2 Ml Vial) 125 mg IV NOW ONE Stop: 07/08/24 12:26 Last Admin: 07/08/24 12:46 Dose: 125 mg Documented By: MOHAMUD Vital Signs Vital signs: Vital Signs - 8 hr 07/08/24 12:13 07/08/24 12:17 07/08/24 12:20 Temperature 97.8 F Pulse Rate 93 H Respiratory Rate 21 Blood Pressure 205/112 H 205/112 H Pulse Oximetry 96 97 Oxygen Delivery Method Room Air 07/08/24 12:20 07/08/24 12:30 07/08/24 12:34 Temperature Pulse Rate 78 78 Respiratory Rate 23 19 Blood Pressure 200/91 H Pulse Oximetry 97 97 Oxygen Delivery Method 07/08/24 12:34 07/08/24 13:00 07/08/24 13:01 Temperature Pulse Rate 77 72 Respiratory Rate 21 22 Blood Pressure 210/96 H Pulse Oximetry 96 94 Oxygen Delivery Method 07/08/24 13:01 07/08/24 13:30 07/08/24 13:31 Temperature Pulse Rate 70 69 72 Respiratory Rate 17 16 22 Blood Pressure Pulse Oximetry 95 94 95 Oxygen Delivery Method Room Air 07/08/24 13:31 07/08/24 14:00 07/08/24 14:01 Temperature Pulse Rate 65 Respiratory Rate 16 Blood Pressure 181/79 H 171/81 H Pulse Oximetry 93 Oxygen Delivery Method 07/08/24 14:01 07/08/24 14:30 07/08/24 14:31 Temperature Pulse Rate 67 67 67 Respiratory Rate 16 19 16 Blood Pressure Pulse Oximetry 93 93 92 Oxygen Delivery Method 07/08/24 14:31 07/08/24 15:08 07/08/24 15:09 Temperature Pulse Rate Respiratory Rate Blood Pressure 186/86 H 172/141 H Pulse Oximetry 93 Oxygen Delivery Method 07/08/24 15:09 07/08/24 15:30 07/08/24 15:30 Temperature Pulse Rate 79 70 Respiratory Rate 18 19 Blood Pressure 189/81 H Pulse Oximetry 95 91 Oxygen Delivery Method 07/08/24 16:00 07/08/24 16:00 07/08/24 16:29 Temperature Pulse Rate 73 71 Respiratory Rate 18 24 Blood Pressure 177/78 H Pulse Oximetry 92 Oxygen Delivery Method 07/08/24 16:30 07/08/24 16:31 07/08/24 17:00 Temperature Pulse Rate 78 Respiratory Rate 22 Blood Pressure 168/76 H 181/79 H Pulse Oximetry Oxygen Delivery Method 07/08/24 17:00 Temperature Pulse Rate 71 Respiratory Rate 28 H Blood Pressure Pulse Oximetry 91 Oxygen Delivery Method MDM - Allergic Reaction MDM Narrative Medical decision making narrative: Patient has had multiple visits to the emergency department for angioedema. She is not on any DARSHAN inhibitors. She has not seen an outside machinist in many years. She does carry an EpiPen. She denies any new products today. She did have teeth cleaning today by the dentist. This is not new for her. Denies any trouble breathing. She did take Benadryl prior to arrival as well as epinephrine injection. Patient in no distress. Has right-sided tongue swelling. Airway intact. No drooling. Please see her last visit here February 17, 2024 for the same complaint. Please see medications below that were given, she agrees to try these medications again. After history and exam, no blood work or imaging indicated this time. Patient already took her home epinephrine. However we will give again if needed. Otherwise Solu-Medrol Pepcid to x-ray will be ordered. Patient on panel monitor. [facility] Medical records reviewed: February 17, 2024 ER visit here for angioedema Differential considered: Includes but not limited to angioedema allergic reaction Consultations: None indicated at this time Re-evaluations: 5:09 p.m.. Patient feeling much better. She states the swelling is much better in her speech has improved. Airway intact. Return precautions reviewed. Patient and desire discharge home Discussion: Appropriate for discharge home exam is reassuring. Patient improved with medications here airway intact. Never required supplemental oxygen. Return precautions reviewed and patient desires discharge home. Diagnosis: Angioedema Discharge Plan Departure Patient Disposition: Home Clinical Impression: Angioedema Qualifiers: Encounter type: initial encounter Qualified Code(s): T78.3XXA - Angioneurotic edema, initial encounter Instructions: DI for Angioedema Activity Restrictions/Additional Instructions: I am glad you are feeling better. Return immediately if worse if any questions or concerns. Please see your family doctor this week for re-evaluation and get referral for continuous improvement specialist. Refill for your EpiPen has been sent to your pharmacy to [facility]. Continue steroid pack prescription tomorrow. Return if worse if any questions or concerns. Prescriptions: New methylprednisolone [Medrol (Eliezer)] 4 mg tablets,dose pack See Rx Instructions .ROUTE .COMPLEX Qty: 21 0RF Rx Instructions: orally per package directions epinephrine [EpiPen 2-Eliezer] 0.3 mg/0.3 mL auto-injector 0.3 mg IM Q5-15M PRN (Reason: anaphylaxis) Qty: 2 0RF Rx Instructions: do not exceed 3 doses per episode No Action epinephrine 0.3 mg/0.3 mL auto-injector 0.3 mg IM ONCE PRN PreserVision AREDS-2 250-90-40-1 mg capsule 1 tab PO BID atorvastatin 20 mg tablet 20 mg PO DAILY Qty: 90 3RF Patient Comments: take 1 tablet by mouth once daily carvedilol 25 mg tablet 25 mg PO BID Qty: 180 3RF Rx Instructions: must administer with a meal/food prednisone 20 mg tablet 40 mg PO DAILY Qty: 10 0RF prednisone 20 mg tablet 40 mg PO DAILY Qty: 10 0RF epinephrine 0.3 mg/0.3 mL auto-injector 0.3 mg IM Q5-15M PRN (Reason: anaphylaxis) Qty: 2 0RF Rx Instructions: do not exceed 3 doses per episode prednisone 20 mg tablet 40 mg PO DAILY Qty: 10 0RF epinephrine 0.3 mg/0.3 mL auto-injector 0.3 mg IM Q5-15M PRN (Reason: anaphylaxis) Qty: 2 0RF Rx Instructions: do not exceed 3 doses per episode Referrals: Inder Tamayo MD [Primary Care Provider] - Stand Alone Forms: Patient Portal/API/Survey
[2024-07-08] MEDS: TRANEXAMIC ACID 1,000 MG in SODIUM CHLORIDE 0.9% 100 ML 200 MG IV (12:45)
[2024-07-08] MEDS: methylPREDNISolone 125 MG/2 ML VIAL IV (12:46)
[2024-07-08] MEDS: EPINEPHrine 1 MG/ML 0.3 MG IM (13:04)
[2024-07-08] MEDS: FAMOTIDINE 20 MG/2 ML VIAL IV (13:10)
--- NOTE | 2024-07-08 15:21 | PC.NURSE ---
Patient here for angioedema unknown etiology, patient has significant tongue swelling, patient took 50mg bendryl and her epi pen [employer]. Here in department she is able to maintain airway and manage her secretions. Denies any SOB, n/v. At 1300 patient mentions that it feels like her tongue is swelling more, Dr Harman is made aware and 0.3 mg epinepherine ordered, see MAR. At this time 1500 patient feels that swelling is getting better and this RN notes swelling has lessened
== END 2024-07-08 17:15 | disposition home or self-care (01) ==
PROVIDERS: Emergency Provider Emergency Medicine; PCP Internal Medicine
DX: T78.3XXA Angioneurotic edema, initial encounter (principal)
CPT/HCPCS: 96365; 96372; 96375; 99284; J0171; J2919

== ENCOUNTER → 2024-08-13 12:13 | Outpatient (CLI) | payer MEDICARE, BC, SELFPAY ==
[2024-08-13 13:31] LABS: Aspartate Aminotransferase 25 IU/L (14-36); BUN Creatinine Ratio 16.9 (6-22); Blood Urea Nitrogen 10 mg/dL (7-17); Calcium 9.6 mg/dL (8.4-10.2); Carbon Dioxide 26 mmol/L (22-32); Chloride 98 mmol/L (98-107); Cholesterol 176 mg/dL (140-199); Estimated Glomerular Filt Rate > 60 mL/min (>60); Glucose 101 mg/dL (70-99); HDL Cholesterol 88 mg/dL (40-60); HEMOLYSIS < 15 (0-50); LDL Cholesterol Calculated 66 mg/dL (<100); Potassium 4.3 mmol/L (3.4-5.1); Sodium 132 mmol/L (137-145); Triglycerides 110 mg/dL (35-150)
== END ==
LOC: LAB 12:14
PROVIDERS: PCP Internal Medicine; Referring Provider Internal Medicine; Visit Provider Internal Medicine
DX: I10 Essential (primary) hypertension (principal); E78.2 Mixed hyperlipidemia
CPT/HCPCS: 36415; 80048; 80061; 84450

== ENCOUNTER 2024-08-17 16:03 | Emergency (ER) | payer MEDICARE, BC, SELFPAY ==
[2024-08-17] VITALS (8 sets, daily range): BP systolic 194–235; BP diastolic 91–109; PULSE 72–92; RESP 15–28; TEMP 36.7; O2SAT 91–96; BMI 29.2
--- NOTE | 2024-08-17 16:22 | ED_ITS ---
HPI - Allergic Reaction <Darrell Calderon, DO - Last Filed: 08/17/24 18:04> General Chief complaint: Allergic Reaction Stated complaint: allergic reaction swelling of tongue Time Seen by Provider: 08/17/24 16:19 History of Present Illness HPI narrative: 84-year-old female history of angioedema with prescribed EpiPen with previous history of multiple visits to the ER for angioedema not currently on any DARSHAN inhibitors presents with tongue swelling today. Patient denies any new soaps lotions detergents no new medicines or new dosages for current medicines or new supplements or vitamins or new food products or new pets. Patient denies trouble breathing chest pain fever chills body aches. Patient did administer herself with epi at 3:30 p.m. prior to arrival and states the swelling has gone down some. Other than what is stated 14 point review of system is negative. Related Data Home Medications ?Medication ?Instructions ?Recorded ?Confirmed epinephrine 0.3 mg/0.3 mL 0.3 mg IM ONCE PRN 07/14/21 08/13/24 injection, auto-injector vit C 250 mg-vit E 90 mg-zinc 40 1 tab PO BID 07/14/21 08/13/24 mg-copper 1 [id number] capsule (PreserVision AREDS-2) faricimab-svoa 6 mg/0.05 mL intravitreal 07/16/2407/27 intravitreal solution (Vabysmo) Previous Rx's ?Medication ?Instructions ?Recorded epinephrine 0.3 mg/0.3 mL 0.3 mg (0.3 mL) IM Q5-15M MA N 08/05/23 injection, auto-injector anaphylaxis #2 ea atorvastatin 20 mg tablet 20 mg PO DAILY #90 tabs 07/27 carvedilol 25 mg tablet 25 mg PO BID #180 tabs 08/05 epinephrine 0.3 mg/0.3 mL 0.3 mg (0.3 mL) IM Q5-15M MA N 02/17/24 injection, auto-injector anaphylaxis #2 ea epinephrine 0.3 mg/0.3 mL 0.3 mg (0.3 mL) IM Q5-15M MA N 07/08/24 injection, auto-injector (EpiPen anaphylaxis #2 ea 2-Eliezer) epinephrine 0.3 mg/0.3 mL 0.3 mg (0.3 mL) IM Q5-15M MA N 08/17/24 injection, auto-injector anaphylaxis #2 ea prednisone 20 mg tablet 40 mg (2 x 20 mg) PO DAILY 5 days 08/17/24 #10 tabs Allergies Allergy/AdvReac Type Severity Reaction Status Date / Time No Known Drug Allergies Allergy Verified 08/13/24 11:42 Review of Systems <Darrell Calderon DO - Last Filed: 08/17/24 18:04> Review of Systems ROS Unobtainable: All systems reviewed & are unremarkable except as noted in HPI and below Patient History <Darrell Calderon DO - Last Filed: 08/17/24 18:04> Medical History Age-related osteoporosis without current pathological fracture Angioedema Angioedema Essential hypertension Hypertension Mixed hyperlipidemia Polyneuropathy, unspecified Surgical History S/P appy Social History household members: spouse Smoking Status: Never smoker alcohol intake: current alcohol intake frequency: 0-2 drinks per day Exam <Darrell Calderon DO - Last Filed: 08/17/24 18:04> Narrative Exam Narrative: GENERAL: [84] year old patient appears stated age. Well-developed patient, in mild distress. HEAD: Atraumatic. Normocephalic. EYES: Pupils equal round and reactive. Extraocular motions intact. No scleral icterus. No injection or drainage. ENT: Nose without bleeding, purulent drainage. Throat without erythema, tonsillar hypertrophy or exudate. Airway patent. Tongue swelling on left side NECK: Trachea midline. Non tender CARDIOVASCULAR: Regular rate and rhythm without murmurs, gallops, or rubs. RESPIRATORY: Clear to auscultation. Breath sounds equal bilaterally. No wheezes, rales, or rhonchi. GASTROINTESTINAL: Abdomen soft, non-tender, nondistended. EXTREMITIES: No edema or joint tenderness. BACK: Nontender without deformity or crepitance. No flank tenderness. NEURO: AOx3. SKIN: No rash or erythema of visible areas Initial Vital Signs Initial Vital Signs: Vital Signs Temperature 98.0 F 08/17/24 16:18 Pulse Rate 92 H 08/17/24 16:18 Respiratory Rate 20 08/17/24 16:18 Blood Pressure 235/109 H 08/17/24 16:18 Pulse Oximetry 96 08/17/24 16:18 Oxygen Delivery Method Room Air 08/17/24 16:18 <Vinod Lees MD - Last Filed: 08/18/24 05:47> Initial Vital Signs Initial Vital Signs: Vital Signs Temperature 98.0 F 08/17/24 16:18 Pulse Rate 92 H 08/17/24 16:18 Respiratory Rate 20 08/17/24 16:18 Blood Pressure 235/109 H 08/17/24 16:18 Pulse Oximetry 96 08/17/24 16:18 Oxygen Delivery Method Room Air 08/17/24 16:18 Course <Darrell Calderon DO - Last Filed: 08/17/24 18:04> Orders Ordered: Discontinued Medications Diphenhydramine HCl (Diphenhydramine 50 Mg/Ml Vial) 50 mg IV NOW ONE Stop: 08/17/24 16:22 Last Admin: 08/17/24 16:42 Dose: Not Given Documented By: TC Epinephrine HCl (Epinephrine 1 Mg/Ml) 0.3 mg IM NOW ONE Stop: 08/17/24 16:22 Last Admin: 08/17/24 16:36 Dose: 0.3 mg Documented By: TC Epinephrine HCl (Epinephrine 1 Mg/Ml) 0.3 mg IM NOW ONE Stop: 08/17/24 17:27 Last Admin: 08/17/24 17:32 Dose: 0.3 mg Documented By: BS Famotidine (Famotidine 20 Mg/2 Ml Vial) 20 mg IV NOW ELOY Last Admin: 08/17/24 16:34 Dose: 20 mg Documented By: TC Methylprednisolone (Methylprednisolone 125 Mg/2 Ml Vial) 125 mg IV NOW ONE Stop: 08/17/24 16:22 Last Admin: 08/17/24 16:32 Dose: 125 mg Documented By: TC Prednisone (Prednisone 20 Mg Tablet) 60 mg PO NOW ONE Stop: 08/17/24 18:35 Last Admin: 08/17/24 18:46 Dose: 60 mg Documented By: BS Vital Signs Vital signs: Vital Signs - 8 hr 08/17/24 16:18 08/17/24 17:00 08/17/24 17:30 Temperature 98.0 F Pulse Rate 92 H 74 73 Respiratory Rate 20 15 16 Blood Pressure 235/109 H Pulse Oximetry 96 92 93 Oxygen Delivery Method Room Air Room Air Room Air 08/17/24 17:33 08/17/24 17:33 08/17/24 17:53 Temperature Pulse Rate 76 Respiratory Rate 22 Blood Pressure 205/91 H 194/93 H Pulse Oximetry 94 Oxygen Delivery Method Room Air 08/17/24 17:53 08/17/24 18:00 08/17/24 18:00 Temperature Pulse Rate 79 72 Respiratory Rate 22 21 Blood Pressure 202/93 H Pulse Oximetry 94 93 Oxygen Delivery Method Room Air <Vniod Lees MD - Last Filed: 08/18/24 05:47> Orders Ordered: Discontinued Medications Diphenhydramine HCl (Diphenhydramine 50 Mg/Ml Vial) 50 mg IV NOW ONE Stop: 08/17/24 16:22 Last Admin: 08/17/24 16:42 Dose: Not Given Documented By: TC Epinephrine HCl (Epinephrine 1 Mg/Ml) 0.3 mg IM NOW ONE Stop: 08/17/24 16:22 Last Admin: 08/17/24 16:36 Dose: 0.3 mg Documented By: TC Epinephrine HCl (Epinephrine 1 Mg/Ml) 0.3 mg IM NOW ONE Stop: 08/17/24 17:27 Last Admin: 08/17/24 17:32 Dose: 0.3 mg Documented By: BS Famotidine (Famotidine 20 Mg/2 Ml Vial) 20 mg IV NOW ELOY Last Admin: 08/17/24 16:34 Dose: 20 mg Documented By: TC Methylprednisolone (Methylprednisolone 125 Mg/2 Ml Vial) 125 mg IV NOW ONE Stop: 08/17/24 16:22 Last Admin: 08/17/24 16:32 Dose: 125 mg Documented By: TC Prednisone (Prednisone 20 Mg Tablet) 60 mg PO NOW ONE Stop: 08/17/24 18:35 Last Admin: 08/17/24 18:46 Dose: 60 mg Documented By: BS Vital Signs Vital signs: Vital Signs - 8 hr 08/17/24 16:18 08/17/24 17:00 08/17/24 17:30 Temperature 98.0 F Pulse Rate 92 H 74 73 Respiratory Rate 20 15 16 Blood Pressure 235/109 H Pulse Oximetry 96 92 93 Oxygen Delivery Method Room Air Room Air Room Air 08/17/24 17:33 08/17/24 17:33 08/17/24 17:53 Temperature Pulse Rate 76 Respiratory Rate 22 Blood Pressure 205/91 H 194/93 H Pulse Oximetry 94 Oxygen Delivery Method Room Air 08/17/24 17:53 08/17/24 18:00 08/17/24 18:00 Temperature Pulse Rate 79 72 Respiratory Rate 22 21 Blood Pressure 202/93 H Pulse Oximetry 94 93 Oxygen Delivery Method Room Air MDM - Allergic Reaction <Darrell Calderon DO - Last Filed: 08/17/24 18:04> [facility] Narrative Medical decision making narrative: Vital signs, nurse triage note, medication list, previous ER visits and all imaging reviewed. Patient given Solu-Medrol 125 mg IV, Pepcid 20 mg IV, patient took Benadryl 50 mg prior to arrival, and 1 epi pen prior to arrival, patient received 2 more doses of intramuscular epinephrine at 0.3 mg. Patient was reexamined multiple times for which tongue swelling has disappeared and she is stable for discharge and now having any shortness of breath or chest pain. Differential diagnosis includes angioedema, allergic reaction. Will DC home on EpiPen and to follow up PCP this week for reexamination. Patient signed out to Dr. Lees at shift change pending final disposition. <Vinod Lees MD - Last Filed: 08/18/24 05:47> [facility] Narrative Medical decision making narrative: Vital signs, nurse triage note, medication list, previous ER visits and all imaging reviewed. Patient given Solu-Medrol 125 mg IV, Pepcid 20 mg IV, patient took Benadryl 50 mg prior to arrival, and 1 epi pen prior to arrival, patient received 2 more doses of intramuscular epinephrine at 0.3 mg. Patient was reexamined multiple times for which tongue swelling has disappeared and she is stable for discharge and now having any shortness of breath or chest pain. Differential diagnosis includes angioedema, allergic reaction. Will DC home on EpiPen and to follow up PCP this week for reexamination. Patient signed out to Dr. Lees at shift change pending final disposition. 08/17/24, 1814, Nabeel. 84-year-old female with oral angioedema symptoms presently and in the past, of unclear etiology, took her own EpiPen prior to arrival, took her own oral 50 mg dose of Benadryl, here in the emergency department has received another epi injection, as well as IV Solu-Medrol and IV Pepcid. No progression of symptoms less far. We will further monitor. Assumed care. Elevated blood pressure noted, after own epi dose prior to arrival, and 2 doses injectable epinephrine here. Due for evening carvedilol dose, we will give her oral dose. We will give oral prednisone 60 mg. We will send prescription for oral prednisone pulse to her pharmacy if not already sent. Symptoms further improved, oral clonidine dose, oral prednisone 1st dose. Prescription sent for further prednisone to her pharmacy. Epinephrine refill prescription also sent. Home with family. Return precautions discussed. Discharge Plan Departure Patient Disposition: Home Clinical Impression: Angioedema Qualifiers: Encounter type: initial encounter Qualified Code(s): T78.3XXA - Angioneurotic edema, initial encounter Instructions: DI for Angioedema Activity Restrictions/Additional Instructions: Return with new or worsening symptoms. EpiPen prescription refilled. Follow up PCP this week for reexamination. Prednisone dose also given in the emergency department, you have had this in the past as well. Five day pulse of prednisone prescription sent to your pharmacy. Also consider taking 50 mg Benadryl by mouth 4 times daily in the next few days as well. Recheck symptoms with your regular provider early next week. Consider consultation with v[employer] net programmer as an outpatient basis for now. History of hypertension, elevated blood pressures after epinephrine doses. Given your evening dose of carvedilol. Continue taking your carvedilol doses as scheduled. Consider recheck of your blood pressure tomorrow in clinic. Return earlier to this/nearest emergency department for any change worsening symptoms or any concerns prior. Prescriptions: New epinephrine 0.3 mg/0.3 mL auto-injector 0.3 mg IM Q5-15M PRN (Reason: anaphylaxis) Qty: 2 0RF Rx Instructions: do not exceed 3 doses per episode prednisone 20 mg tablet 40 mg PO DAILY 5 Days Qty: 10 0RF No Action epinephrine 0.3 mg/0.3 mL auto-injector 0.3 mg IM ONCE PRN PreserVision AREDS-2 250-90-40-1 mg capsule 1 tab PO BID Vabysmo 6 mg/0.05 mL solution intravitreal atorvastatin 20 mg tablet 20 mg PO DAILY Qty: 90 3RF Patient Comments: take 1 tablet by mouth once daily carvedilol 25 mg tablet 25 mg PO BID Qty: 180 3RF Rx Instructions: must administer with a meal/food epinephrine 0.3 mg/0.3 mL auto-injector 0.3 mg IM Q5-15M PRN (Reason: anaphylaxis) Qty: 2 0RF Rx Instructions: do not exceed 3 doses per episode epinephrine 0.3 mg/0.3 mL auto-injector 0.3 mg IM Q5-15M PRN (Reason: anaphylaxis) Qty: 2 0RF Rx Instructions: do not exceed 3 doses per episode epinephrine [EpiPen 2-Eliezer] 0.3 mg/0.3 mL auto-injector 0.3 mg IM Q5-15M PRN (Reason: anaphylaxis) Qty: 2 0RF Rx Instructions: do not exceed 3 doses per episode Referrals: Inder Tamayo MD [Primary Care Provider, Internal Medicine] Stand Alone Forms: Patient Portal/API
[2024-08-17] MEDS: methylPREDNISolone 125 MG/2 ML VIAL IV (16:32)
[2024-08-17] MEDS: FAMOTIDINE 20 MG/2 ML VIAL IV (16:34)
[2024-08-17] MEDS: EPINEPHrine 1 MG/ML 0.3 MG IM ×2 (16:36→17:32)
[2024-08-17] MEDS: predniSONE 20 MG TABLET 60 MG PO (18:46)
== END 2024-08-17 18:55 | disposition home or self-care (01) ==
PROVIDERS: Emergency Provider Emergency Medicine; PCP Internal Medicine
DX: T78.3XXA Angioneurotic edema, initial encounter (principal)
CPT/HCPCS: 96372; 96374; 96375; 99284; J0171; J2919

== ENCOUNTER → 2024-09-12 11:15 | Outpatient (CLI) | payer MEDICARE, BC, SELFPAY ==
--- NOTE | 2024-09-12 11:18 | DI.MG.S_ITS ---
MM screening mammo BI: 09/12/2024. BI-RADS: 1 CLINICAL: 84-year old female for bilateral screening mammogram. Tyrer-Cuzick lifetime risk of 0.6%. No personal or first-degree family history of breast cancer. PRIOR EXAMS 05/27/2020, 04/01/2019, 03/26/2018, 03/19/2017. MAMMOGRAPHY TECHNIQUE: 2D and 3D (tomosynthesis) digital mammographic views obtained, with additional images as needed for full coverage. Current study was also evaluated with a Computer Aided Detection (CAD) system. DENSITY B. There are scattered areas of fibroglandular density. MAMMOGRAPHY FINDINGS Bilateral: No suspicious mass, asymmetry, microcalcification, or other abnormality seen. No significant change from comparison. IMPRESSION: * No evidence of malignancy. RECOMMENDATIONS Bilateral * Annual screening mammography. OVERALL ASSESSMENT CATEGORY BI-RADS-1: Negative. The [employer] recommends annual screening mammography beginning at age 40 for women with average risk of breast cancer. ELECTRONICALLY SIGNED: Whitney Starkey M.D. on 09/12/2024 at 03:22:49 PM PT Interpreting Station ID: [id number]
== END ==
PROVIDERS: PCP Internal Medicine; Referring Provider Internal Medicine; Visit Provider Internal Medicine
DX: Z12.31 Encounter for screening mammogram for malignant neoplasm of breast (principal)
CPT/HCPCS: 77063; 77067